=== PATIENT | female | born 1930 | race Asian ===

== ENCOUNTER → 2017-03-03 | Outpatient (CLI) | payer MEDICARE, OTHER ==
[2014-09-02 13:27] VITALS: BMI 36.1
[~2017-03-03] MED LIST: ACE325 PO; ACET500T68 PO; ACLI400A2 IH; ADV100/50 INH; ADV250/50 INH; ALB18R IH; ALBU2.5V36 IH; ALBU8.5H IH; ALBU8.5H12 IH; ALL300 GT; ALL300 PO; ALLO-2 PO; AML5 PO; AMLO-101 PO; AMLO-96 PO; ASP325 PO; ASPI81TA94 PO; ATEN-1 PO; ATEN-65 PO; ATENOLOL; AUG875 PO; AZI250 PO; AZIT-18 PO; Acetaminophen PO; Albuterol/Ipratropium NEB; BENZ100C26 PO; CA C1TAB6 PO; CELE-1 PO; CLO75 PO; CLOP75TA43 PO; CYC10 PO; CYCL-277 PO; DOCU-202 PO; DULO30CA6 PO; DUONEB INH; DYAZIDE; ESC10 PO; ESCI20TA38 PO; FERR-41 PO; FERR28TA2 PO; FLU60SYR30 IM ONLY; FLUT1DIS28 INH; FUR20 PO; FURO-45 PO; FURO-47 PO; FURO40SO5 PO; FURO40TA35 PO; GAB100 PO; GAB300 PO; GABA-488 PO; GABA-549 PO; GLIM1TAB25 PO; Guaifenesin PO; HYDR-318 PO; IPRA3AMP21 IH; IPRA3AMP37 IH; IPRA4AER IH; IRO150 PO; LEV500 PO; LEVO750T27 PO; LID5T TP; LIS20 PO; LISI-357 PO; LISI-362 PO; LISI-374 PO; LOR5 PO; Losartan Potassium PO; METH4TAB66 PO; METO-1 PO; METO25TA23 PO; MOM PO; MONT10TA PO; MU-V1TAB9 PO; MULT1TAB54 PO; OMEP-125 PO; OXYC-865 PO; OXYC-869 PO; OXYC1TAB54 PO; PAN40 PO; PANT40TA65 PO; PER PO; POLY17PO21 PO; POLY17PO25 PO; POTA20PA10 PO; POTA20TA85 PO; POTA20TA94 PO; PRAV40TA77 PO; PRAV40TA78 PO; PRED20TA6 PO; Pantoprazole Sod PO; Portable Oxygen; SERT-184 PO; SIM10 PO; SIMV-42 PO; SPIR25TA78 PO; SUCR1TAB51 PO; Sucralfate PO; TRA50 PO; TRAM-420 PO
[2017-03-03 17:21] LABS: PLATELET COUNT, AUTOMATED 207 K/uL (150-450)
--- NOTE | 2017-03-03 18:59 | RADIOLOGY IMAGING REPORT ---
FACILITY: [facility] - [place] PATIENT NAME: Yuly Truong : 1930 MR: [id number] V: [id number] EXAM DATE: ORDERING PHYSICIAN: ALEXANDER CASTANON TECHNOLOGIST: Location: [facility] - [place] Patient: Yuly Truong : 1930 Visit/Account:[id number] Date of Sevice: 03/03/2017 CHEST PA AND LAT INDICATION: PNEUMONIA COMPARISON: 02/10/2017 FINDINGS: Cardiac silhouette remains mildly enlarged. Scarring is noted within the right upper lobe. There is bibasilar atelectasis versus infiltrate more prominent on the right than left. Prominent interstitial lung markings are again noted There is no pneumothorax or pleural effusion. IMPRESSION: 1. Question possible right lower lobe infiltrate versus atelectasis. Probable atelectasis is noted at the left lung base. Report Dictated By: Trenton Lanza at 03/03/2017 6:47 PM Report E-Signed By: Trenton Lanza at 03/03/2017 6:56 PM WSN:[id number]
--- NOTE | 2017-03-03 19:01 | RADIOLOGY IMAGING REPORT ---
FACILITY: [facility] - [place] PATIENT NAME: Yuly Truong : 1930 MR: [id number] V: [id number] EXAM DATE: ORDERING PHYSICIAN: ALEXANDER CASTANON TECHNOLOGIST: [place] [facility] [place]: Yuly Truong : 1930 Visit/Account:[id number] Date of Sevice: 03/03/2017 TIBIA FIBULA RIGHT Indication: Pain Comparison: None available Findings: Two views right tibia and fibula show no acute fracture or dislocation. Cerclage wires noted around remote patellar fracture There is no focal soft tissue abnormality. No evidence of radiopaque foreign body. IMPRESSION: No acute osseous abnormality right tibia/fibula Report Dictated By: Trenton Lanza at 03/03/2017 6:56 PM Report E-Signed By: Trenton Lanza at 03/03/2017 6:56 PM WSN:[id number]
== END ==
LOC: LAB 16:33
PROVIDERS: ATTEND Nurse Practitioner Family
DX: I50.9 Heart failure, unspecified (principal); I10 Essential (primary) hypertension
CPT/HCPCS: 36415; 71046; 82040; 82247; 82310; 82374; 82435; 82565; 82947; 83880; 84075; 84132; 84155; 84295; 84450; 84460; 84520; 85025

== ENCOUNTER → 2017-03-27 | Outpatient (CLI) | payer MEDICARE, OTHER ==
[2014-09-02 13:27] VITALS: BMI 36.1
[2017-03-27 16:29] LABS: PLATELET COUNT, AUTOMATED 179 K/uL (150-450)
--- NOTE | 2017-03-27 18:01 | RADIOLOGY IMAGING REPORT ---
FACILITY: [facility] PATIENT NAME: Yuly Truong : 1930 MR: [id number] V: [id number] EXAM DATE: ORDERING PHYSICIAN: ALEXANDER CASTANON TECHNOLOGIST: Location: [facility] Patient: Yuly Truong : 1930 Visit/Account:[id number] Date of Sevice: 03/27/2017 EXAMINATION: PA and Lateral Chest 03/27/2017 4:22 PM HISTORY: pneumonia COMPARISON: 03/03/2017 FINDINGS: Cardiomediastinal contours: Stable heart size and configuration. 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 Atheros clerotic aorta. Lungs and pleura: Increased markings the lungs with similar pattern to previous. No acute superimpose d focal infiltrate evident. Bones/soft tissues: Old lateral right rib trauma. Degenerative or posttraumatic changes in the right shoulder. Stable thoracolumbar wedge compressions. IMPRESSION: Chronic features including increased markings in the lungs which are similar to priors an d consistent with fibrosis. No acute superimposed infiltrate evident. Report Dictated By: Ismael Hernandez MD at 03/27/2017 5:55 PM Report E-Signed By: Ismael Hernandez MD at 03/27/2017 5:57 PM WSN:[id number]
== END ==
LOC: LAB 16:07
PROVIDERS: ATTEND Nurse Practitioner Family
DX: I70.0 Atherosclerosis of aorta (principal); R91.8 Other nonspecific abnormal finding of lung field; D64.9 Anemia, unspecified; R19.7 Diarrhea, unspecified
CPT/HCPCS: 36415; 71046; 82040; 82247; 82310; 82374; 82435; 82565; 82947; 84075; 84132; 84155; 84295; 84450; 84460; 84520; 85025; 85651; 86140

== ENCOUNTER → 2017-08-07 | Outpatient (CLI) | payer MEDICARE, OTHER ==
[2014-09-02 13:27] VITALS: BMI 36.1
[~2017-08-07] MED LIST changes: +PRAZ1CAP26 PO
== END ==
LOC: LAB 14:48
PROVIDERS: ATTEND Internal Medicine Cardiovascular Disease
DX: I50.32 Chronic diastolic (congestive) heart failure (principal)
CPT/HCPCS: 36415; 83880

== ENCOUNTER → 2017-08-14 | Outpatient (CLI) | payer MEDICARE, OTHER ==
[2014-09-02 13:27] VITALS: BMI 36.1
[~2017-08-14] MED LIST changes: +RANI-366 PO
[2017-08-14 12:29] LABS: PLATELET COUNT, AUTOMATED 202 K/uL (150-450)
== END ==
LOC: LAB 11:57
PROVIDERS: ATTEND Nurse Practitioner Family
DX: R10.9 Unspecified abdominal pain (principal)
CPT/HCPCS: 36415; 81001; 82040; 82150; 82247; 82306; 82310; 82374; 82435; 82465; 82565; 82947; 83036; 83690; 83718; 83970; 84075; 84132; 84155; 84295; 84443; 84450; 84460; 84478; 84520; 85025

== ENCOUNTER → 2017-08-18 | Outpatient (CLI) | payer MEDICARE, OTHER ==
[2014-09-02 13:27] VITALS: BMI 36.1
[2017-08-18 15:29] LABS: PLATELET COUNT, AUTOMATED 179 K/uL (150-450)
== END ==
LOC: LAB 15:02
PROVIDERS: ATTEND Nurse Practitioner Family
DX: E83.52 Hypercalcemia (principal); D64.9 Anemia, unspecified
CPT/HCPCS: 36415; 82040; 82247; 82310; 82330; 82374; 82435; 82565; 82607; 82652; 82746; 82947; 83519; 84075; 84132; 84155; 84165; 84295; 84450; 84460; 84520; 85007; 85027

== ENCOUNTER → 2017-09-04 | Outpatient (CLI) | payer MEDICARE, OTHER ==
[2014-09-02 13:27] VITALS: BMI 36.1
[~2017-09-04] MED LIST changes: +IPRA3AMP10 IH; -IPRA3AMP21 IH; -SPIR25TA78 PO; +SPIR25TA80 PO
--- NOTE | 2017-09-04 16:52 | RADIOLOGY IMAGING REPORT ---
FACILITY: PATIENT NAME: Yuly Truong : 1930 MR: [id number] V: [id number] EXAM DATE: ORDERING PHYSICIAN: ALEXANDER CASTANON TECHNOLOGIST: Location: [facility] - [place] Patient: Yuly Truong : 1930 Visit/Account:[id number] Date of Sevice: 09/04/2017 ABDOMEN/PELVIS W/O CONTRAST Provided history: abdominal pain Additional pertinent history: none TECHNIQUE: Spiral scan was obtained from the lower chest through the symphysis without intravenous co ntrast. Source images were reformatted in the coronal and sagittal planes. Additional series performed today: none One of the following dose optimization techniques was utilized in the performance of this exam: Autom ated exposure control; adjustment of the mA and/or kV according to the patient's size; or use of an i terative reconstruction technique. Specific details can be referenced in the facility's radiology CT exam operational policy. COMPARISON STUDIES: CT 08/14/16 FINDINGS: Lower chest: Stable subpleural reticular densities. No acute infiltrate. Prosthetic aortic valve no dayron. Liver/biliary: Nodular surface and relative hypertrophy of the lateral segment left lobe is concernin g for potential cirrhosis. No focal lesion detected on this non-IV enhanced study. Gallbladder and bile ducts negative. Main portal vein is relatively small. Pancreas: Negative Spleen: Stable 13 mm round hypodensity of the medial posterior spleen, very likely benign cyst or hem angioma. Adrenal glands: Negative Kidneys / ureters / bladder / genitourinary / retroperitoneum: Negative Bowel / peritoneum / mesenteries: Moderate diverticulosis of the lower descending;. No acute diverti culitis. Vessels: Moderate calcified plaque abdominal aorta and iliacs. No aneurysm. Lymph nodes: negative Body wall: There are 3 defects in the anterior midline rectus fascia with herniation of properitoneal fat through age defect. The upper defect has a mouth measuring 10 mm with a hernia sac of nearly 4 cm craniocaudal. The middle defect measures 2 cm in diameter with a hernial directly beneath the umb ilicus measuring 3.4 cm. The lowermost defect has a mouth measuring 10 mm and hernia sac of fat jenna uring 2.5 cm. No inflammatory change. No bowel herniation. No change from prior. Bones: Stable moderate central compression deformity at T12. Stable moderate anterior compression de formity at L1. Stable minor anterior wedge deformity at L4. No interim fractures. No lytic or marine tic bone lesion. IMPRESSION: 1. Morphology of the liver is concerning for developing cirrhosis. Correlate with LFTs. No obvious focal lesion on this nonenhanced scan. Suggest baseline MRI without and with IV gadolinium. 2. No acute inflammatory change in the abdomen or pelvis. 3. 3 anterior abdominal and pelvic wall fat-containing hernias without inflammation. No bowel herni ation. 4. Stable compression deformities of the spine. No interim compression fractures. Report Dictated By: Fredi Azul MD at 09/04/2017 4:40 PM Report E-Signed By: Fredi Azul MD at 09/04/2017 4:49 PM WSN:[id number]
== END ==
LOC: CT 03:26
PROVIDERS: ATTEND Nurse Practitioner Family
DX: K76.0 Fatty (change of) liver, not elsewhere classified (principal); I25.10 Atherosclerotic heart disease of native coronary artery without angina pectoris; K43.9 Ventral hernia without obstruction or gangrene; M51.34 Other intervertebral disc degeneration, thoracic region; M51.36 Other intervertebral disc degeneration, lumbar region
CPT/HCPCS: 36415; 74176; 82565

== ENCOUNTER → 2017-09-11 | Outpatient (CLI) | payer MEDICARE, OTHER ==
[2014-09-02 13:27] VITALS: BMI 36.1
[~2017-09-11] MED LIST changes: +CYAN100017 PO; +GADOBENATE 529MG/1ML 15ML VIAL IVP ONE; +NS 0.9% 20 ML SDV 40 ML ONE
--- NOTE | 2017-09-11 14:48 | RADIOLOGY IMAGING REPORT ---
FACILITY: [facility] PATIENT NAME: Yuly Truong : 1930 MR: [id number] V: [id number] EXAM DATE: ORDERING PHYSICIAN: ALEXANDER CASTANON TECHNOLOGIST: Location: [facility] - [place] Patient: Yuly Truong : 1930 Visit/Account:[id number] Date of Sevice: 09/11/2017 ABDOMEN W W/O CONTRAST HISTORY: abdominal pain and abnormal CT of the liver TECHNIQUE: Multiplanar multisequence magnetic resonance imaging of the abdomen without and with intr avenous contrast. CONTRAST: 15 mL MultiHance IV contrast COMPARISON: CT dated September 04, 2017. FINDINGS: Visualized lung bases: Negative. Liver: Suggestion of mild lobulated contour of the liver. No additional morphologic changes suggest sonido of cirrhosis. No concerning hepatic lesions. Diffuse mild hepatic steatosis. Gallbladder: Small gallstone without evidence for acute cholecystitis. Bile ducts: Common bile duct is borderline prominent however within normal limits for the patient's a ge. There is no visualized obstructing mass or choledocholithiasis. Spleen: T2 hyperintense lesion within the spleen measuring up to 1.5 cm, with delayed enhancement, m ost compatible with a hemangioma. Spleen is normal in size. Adrenals: Negative. Pancreas: Negative. Kidneys/: Negative. Visualized GI: Negative. Vessels/spaces/nodes: Negative. Bones/soft tissues: Negative. IMPRESSION: 1. Mild nonspecific lobulated contour of the liver without additional morphologic changes suggestive of cirrhosis. No visualized concerning hepatic lesions. 2. Additional incidental/chronic findings, as above. Report Dictated By: Kurt Gatica MD at 09/11/2017 2:36 PM Report E-Signed By: Kurt Gatica MD at 09/11/2017 2:44 PM WSN:[email or web address]
== END ==
LOC: MRI 02:50
PROVIDERS: ATTEND Nurse Practitioner Family
DX: K80.20 Calculus of gallbladder without cholecystitis without obstruction (principal); R93.2 Abnormal findings on diagnostic imaging of liver and biliary tract
CPT/HCPCS: 74183; A9577; J7050

== ENCOUNTER → 2017-09-14 | Outpatient (CLI) | payer MEDICARE, OTHER ==
[2014-09-02 13:27] VITALS: BMI 36.1
[~2017-09-14] MED LIST changes: -GADOBENATE 529MG/1ML 15ML VIAL IVP ONE; -NS 0.9% 20 ML SDV 40 ML ONE
[2017-09-14 15:58] LABS: PLATELET COUNT, AUTOMATED 191 K/uL (150-450)
== END ==
LOC: LAB 15:26
PROVIDERS: ATTEND Nurse Practitioner Family
DX: E83.52 Hypercalcemia (principal); D64.9 Anemia, unspecified; R94.5 Abnormal results of liver function studies
CPT/HCPCS: 36415; 82040; 82247; 82310; 82374; 82435; 82565; 82728; 82947; 83519; 83540; 83550; 84075; 84132; 84155; 84295; 84450; 84460; 84520; 85025; 86706; 86707; 87340; 87350; 87522

== ENCOUNTER → 2017-10-05 | Outpatient (CLI) | payer MEDICARE, OTHER ==
[2014-09-02 13:27] VITALS: BMI 36.1
--- NOTE | 2017-10-05 16:33 | RADIOLOGY IMAGING REPORT ---
FACILITY: [facility] - [place] PATIENT NAME: Yuly Truong : 1930 MR: [id number] V: [id number] EXAM DATE: ORDERING PHYSICIAN: MARISSA RAMOS TECHNOLOGIST: Location: [facility] - [place] Patient: Yuly Truong : 1930 Visit/Account:[id number] Date of Sevice: 10/05/2017 Exam type: BONE SURVEY COMPLETE History: Abnormal labs Comparison: None. Findings: There is diffuse demineralization of the visualized bones. A lateral view from the body of C2 throug h the mid thoracic spine demonstrates multiple thoracic compression fractures. A rotated lateral view of the skull reveals no gross evidence of lytic or blastic lesion. An AP view the pelvis demonstrates moderate spondylotic changes lower lumbar spine. No aggressive ap pearing bone lesions are seen. AP views of the femurs including the hips in the knees demonstrate no aggressive appearing lesions. There are postsurgical changes of the right patella. AP views of both humeri demonstrate moderate degenerative changes at the shoulder joints. No aggress sonido appearing lesions are seen IMPRESSION: 1. No aggressive appearing bone lesions are identified Report Dictated By: Florencia Escobedo MD at 10/05/2017 4:24 PM Report E-Signed By: Florencia Escobedo MD at 10/05/2017 4:28 PM WSN:[id number]
== END ==
LOC: RAD 14:40
PROVIDERS: ATTEND Internal Medicine Hematology
DX: R79.9 Abnormal finding of blood chemistry, unspecified (principal)
CPT/HCPCS: 77075

== ENCOUNTER → 2017-10-07 | Outpatient (CLI) | payer MEDICARE, OTHER ==
[2014-09-02 13:27] VITALS: BMI 36.1
[~2017-10-07] MED LIST changes: +REGADENOSON 0.4 MG/5 ML SYR ONE
--- NOTE | 2017-10-07 16:39 | RADIOLOGY IMAGING REPORT ---
FACILITY: [facility] - [place] PATIENT NAME: Yuly Truong : 1930 MR: [id number] V: [id number] EXAM DATE: ORDERING PHYSICIAN: KIRA PIKE TECHNOLOGIST: Location: [facility] - [place] Patient: Yuly Truong : 1930 Visit/Account:[id number] Date of Sevice: 10/07/2017 EXAMINATION: Single isotope SPECT imaging with regadenoson infusion and gated SPECT imaging. DATE OF EXAMINATION: 10/07/2017. DATE OF INTERPRETATION: 10/07/2017. REQUESTING PHYSICIAN: KIRA PIKE. INDICATION: The patient is a 87-year-old female evaluated for CAD. PROCEDURE: After informed consent the patient received an intravenous injection of 12.0 mCi of Tc-99 m sestamibi followed at an appropriate time interval by rest imaging. The patient then subsequently received an intravenous infusion of 0.4 mg of regadenoson per protocol without complication. Resting heart rate was 82 bpm with a peak heart rate of 90 bpm. Blood pressure at rest was 159 / 66 and fol lowing infusion was 201 / 67. Baseline EKG demonstrates normal sinus rhythm, no ST or T-wave abnorma lities. There were no EKG changes of ischemia following infusion. Symptoms were nonspecific. The p atient then received an intravenous injection of 29.3 mCi of Tc-99m sestamibi followed by stress imag ing. RAW DATA: Examination of the summed raw data revealed a good quality study. MYOCARDIAL PERFUSION: The tomographic images demonstrate small, mild anteroapical defect that appear s fixed with no evidence of reversible ischemia. GATED IMAGES: The gated images demonstrate hyperdynamic wall motion, ejection fraction 84%. IMPRESSION: 1. Good quality study 2. Abnormal myocardial perfusion scan. Small anteroapical defect may suggest prior LAD or diagonal i nfarct but no reversible ischemia seen. 3. Hyperdynamic LV systolic function; LVEF 84%. 4. Based on the results of this exam, the patient appears to be at low risk for future cardiovascular events but remains intermediate risk due to history of CAD. Report Dictated By: Johny Sosa at 10/07/2017 4:32 PM Report E-Signed By: Johny Sosa at 10/07/2017 4:36 PM WSN:[id number]
--- NOTE | 2017-10-07 21:43 | RT STRESS TEST REPORT ---
FACILITY: [facility] - [place] PATIENT NAME: PK VILLAFANA : [id number] MR: [id number] V: [id number] EXAM DATE: ORDERING PHYSICIAN: KIRA PIKE TECHNOLOGIST: [place] Acquisition Time: 2017-10-07 14:37:16 Total Exercise Time: 00:01:00 Test Indications: Screening for CAD Medications: See nuclear med sheet Protocol: LEXISCAN Max HR: 090 BPM 66% of Pred: 135 BPM Max BP: 201/067 mmHG Max Work Load: 1.0 METS Confirmed by RIDDHI FIGUEROA ([id number]) on 10/07/2017 9:42:38 PM Referred By: RIDDHI FIGUEROA Overread By: RIDDHI FIGUEROA
== END ==
LOC: NUC 02:23
PROVIDERS: ATTEND Internal Medicine Cardiovascular Disease
DX: R94.39 Abnormal result of other cardiovascular function study (principal)
CPT/HCPCS: 36415; 78452; 93017; A9500; J2785; 82040; 82247; 82310; 82374; 82435; 82465; 82565; 82947; 83718; 84075; 84132; 84155; 84295; 84450; 84460; 84478; 84520

== ENCOUNTER 2017-10-08 15:54 | Outpatient (RCR) | payer MEDICARE, OTHER ==
[2014-09-02 13:27] VITALS: Wt 85.0 kg
[2017-09-24 15:56] VITALS: BP 140/67
[2017-09-24 16:44] LABS: PLATELET COUNT, AUTOMATED 183 K/uL (150-450)
--- NOTE | 2017-09-24 18:58 | ONCOLOGY CONSULTATION ---
EVENT DATE: September 24, 2017 REFERRING PHYSICIAN Stephany Blakely APRN REASON FOR CONSULTATION Evaluation and management of abnormal serum protein electrophoresis. HEMATOLOGY HISTORY Patient is an 87-year-old female who is followed by Stephany Blakely and patient was found to have an abnormal serum protein with immunofixation which showed a faint band in IgG lambda. Patient also showed a white count of 6.4, hemoglobin 11.6, hematocrit 33.7, platelets 191,000. Serum creatinine was mildly elevated at 1.4, blood sugar 120. Erythropoietin level was mildly elevated at 33. Quantitative immunoglobulins were normal, IgG was 1060, IgA was 157 and IgM was 40. Patient was referred for evaluation of the abnormal serum protein electrophoresis. PAST MEDICAL HISTORY 1. Dementia. 2. Congestive heart failure. 3. Hyperlipidemia. 4. Heart attack in 2012. 5. COPD. 6. History of pneumonia. 7. Type 2 diabetes mellitus. PAST SURGICAL HISTORY 1. Appendectomy. 2. Hysterectomy done in 2012. SOCIAL HISTORY The patient is a with one daughter. 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 FAMILY HISTORY Noncontributory. CURRENT MEDICATIONS 1. Prazosin 1 mg at bedtime. 2. Tramadol 50 mg three times daily p.r.n. for pain. 3. Vitamin B12 one tablet daily 1000 mcg. 4. Zantac 150 mg daily. 5. Albuterol 90 mcg per activation two puff inhalation four times daily as needed. 6. Duloxetine 30 mg one capsule daily. 7. Metoprolol 25 mg daily. 8. Amlodipine 5 mg daliy. 9. Allopurinol 300 mg daily. 10. Gabapentin 100 mg three times daily. 11. Tylenol p.r.n. three times daily 1000 mg. 12. Lasix 40 mg twice daily. 13. Pravastatin 40 mg daily. 14. Ipratropium/albuterol by nebulization four to six hours p.r.n. 15. Aspirin 81 mg daily. 16. Advair 250/50 twice daily. 17. Multivitamin daily. 18. Portable oxygen. ALLERGIES No known drug allergies. REVIEW OF SYSTEMS CONSTITUTIONAL: No appetite or weight change. No fever, chills or sweating. No recent infection. HEENT: Ears: No tinnitus or hearing problem. Nose: No nasal discharge. She has occasional epistaxis. Throat: No sore throat or mouth ulcers. Eyes: No diplopia or visual changes. RESPIRATORY: She has cough, shortness of breath and wheezing. CARDIOVASCULAR: No chest pain, orthopnea, or paroxysmal nocturnal dyspnea (PND) . No edema. No palpitations. GASTROINTESTINAL: She has nausea and constipation. GENITOURINARY: No hematuria or dysuria. MUSCULOSKELETAL: She has pain in the right shoulder which is getting better with local steroid injections. NEUROLOGICAL: She has tingling and numbness in the hands. HEMATOLOGIC/LYMPHATIC: She bruises easily. She is weak, tired and fatigued. SKIN: No skin rash or lumps. PSYCHIATRIC: No anxiety or depression. PHYSICAL EXAMINATION GENERAL: Looks stable. Well-developed, well-nourished, and in no acute distress. VITAL SIGNS: Blood pressure 140/67, pulse 78 per minute, respirations 16 per minute, temperature 97.9, pulse ox 95% on 3L oxygen. HEENT: Head: Atraumatic. No sinus tenderness to palpation. Eyes: No icterus or conjunctivitis. Mouth and Throat: No oral thrush or mucositis. NECK: Supple. No cervical or supraclavicular lymphadenopathy. LUNGS: Clear to auscultation and percussion bilaterally. HEART: Regular rate and rhythm. No gallops, murmurs, clicks or rubs. ABDOMEN: Soft and lax. No tenderness. No hepatosplenomegaly. No masses. EXTREMITIES: No cyanosis, clubbing or edema. LYMPHATICS: No peripheral lymphadenopathy. NEUROLOGICAL: The patient has dementia. PSYCHIATRIC: Mood and affect appear normal. SKIN: No skin rash, bruise or purpuric eruption. ASSESSMENT 1. Abnormal serum protein immunoelectrophoresis with faint band in the IgG lambda. I am planning to run a full workup for multiple myeloma and I am planning to get a CBC, chem panel, LDH, uric acid, beta-2 microglobulin, free light chain assay and repeat the immunoelectrophoresis. I am planning also to get skeletal bone survey to see if there are any lytic bone lesions. Further evaluation and management will depend on the results of those tests. 2. Dementia. 3. Congestive heart failure. 4. Chronic obstructive pulmonary disease. 5. Type 2 diabetes. PLAN 1. CBC, chem panel. 2. LDH, uric acid. 3. Serum protein electrophoresis. 4. Free light chain assay. 5. Beta-2 microglobulin. 6. Skeletal bone survey. 7. Consider bone marrow aspiration biopsy. 8. Patient to return in one week for further evaluation and management. 9. Patient to contact us for any new concerns or complaints. MTDD
[~2017-10-08 15:54] MED LIST changes: -REGADENOSON 0.4 MG/5 ML SYR ONE
[2017-10-08 16:01] VITALS: BP 165/72
--- NOTE | 2017-10-08 19:08 | ONCOLOGY FOLLOW UP NOTE ---
EVENT DATE: October 08, 2017 DIAGNOSES 1. Abnormal serum protein immunoelectrophoresis. 2. Dementia. 3. Congestive heart failure. 4. Chronic obstructive pulmonary disease. 5. Type 2 diabetes. CHIEF COMPLAINT Patient is here today for followup of her evaluation of her abnormal serum protein immunoelectrophoresis. HEMATOLOGY HISTORY Patient is an 87-year-old female who is followed by Stephany Blakely and patient was found to have an abnormal serum protein with immunofixation which showed a faint band in IgG lambda. Patient also showed a white count of 6.4, hemoglobin 11.6, hematocrit 33.7, platelets 191,000. Serum creatinine was mildly elevated at 1.4, blood sugar 120. Erythropoietin level was mildly elevated at 33. Quantitative immunoglobulins were normal, IgG was 1060, IgA was 157 and IgM was 40. Patient was referred for evaluation of the abnormal serum protein electrophoresis. Repeat CBC showed normal white count and platelets, mild anemia at 11.2 with MCV 100.1. Chem panel totally normal except AST 38, creatinine 1.3, blood sugar 137, BUN 32. Steinauer free light chain is high at 7.41 and lambda free light chain is high at 2.66, and free kappa to lambda ratio is high at 2.79. Skeletal bone survey is normal with no lytic bone lesions. Serum protein immunoelectrophoresis shows a normal pattern with no monoclonal protein. HISTORY OF PRESENT ILLNESS Patient is here today for followup of her abnormal serum protein immunoelectrophoresis. She is complaining of sweating sometimes. She has also a bloody nose sometimes. She has cough with shortness of breath and she is on home oxygen. She has also constipation. She has pain in her knees, but she has also cramps everywhere. She bruises easily. She is weak, tired and fatigued. PAST MEDICAL HISTORY 1. Dementia. 2. Congestive heart failure. 3. Hyperlipidemia. 4. Heart attack in 2012. 5. COPD. 6. History of pneumonia. 7. Type 2 diabetes mellitus. PAST SURGICAL HISTORY 1. Appendectomy. 2. Hysterectomy done in 2012. SOCIAL HISTORY The patient is a with one daughter. 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 FAMILY HISTORY Noncontributory. CURRENT MEDICATIONS 1. Prazosin 1 mg at bedtime. 2. Tramadol 50 mg three times daily p.r.n. for pain. 3. Vitamin B12 one tablet daily 1000 mcg. 4. Zantac 150 mg daily. 5. Albuterol 90 mcg per activation two puff inhalation four times daily as needed. 6. Duloxetine 30 mg one capsule daily. 7. Metoprolol 25 mg daily. 8. Amlodipine 5 mg daliy. 9. Allopurinol 300 mg daily. 10. Gabapentin 100 mg three times daily. 11. Tylenol p.r.n. three times daily 1000 mg. 12. Lasix 40 mg twice daily. 13. Pravastatin 40 mg daily. 14. Ipratropium/albuterol by nebulization four to six hours p.r.n. 15. Aspirin 81 mg daily. 16. Advair 250/50 twice daily. 17. Multivitamin daily. 18. Portable oxygen. ALLERGIES No known drug allergies. REVIEW OF SYSTEMS CONSTITUTIONAL: No appetite or weight change. No fever, chills. She has sweating. No recent infection. HEENT: Ears: No tinnitus or hearing problem. Nose: No nasal discharge. She has epistaxis occasionally. Throat: No sore throat or mouth ulcers. Eyes: No diplopia or visual changes. RESPIRATORY: She has dry cough and shortness of breath. CARDIOVASCULAR: No chest pain, orthopnea, or paroxysmal nocturnal dyspnea (PND) . No edema. No palpitations. GASTROINTESTINAL: She has constipation. GENITOURINARY: No hematuria or dysuria. MUSCULOSKELETAL: She has pain in the knees and cramps. NEUROLOGICAL: No tingling or numbness in the hands or feet. No headaches or convulsions. HEMATOLOGIC/LYMPHATIC: She bruises easily. She is weak, tired and fatigued. SKIN: No skin rash or lumps. PSYCHIATRIC: No anxiety or depression. PHYSICAL EXAMINATION GENERAL: Looks stable. Well-developed, well-nourished, and in no acute distress. VITAL SIGNS: Blood pressure 165/72, pulse 96 per minute, respirations 16 per minute, temperature 97.6, pulse ox 94% on 4L oxygen. HEENT: Head: Atraumatic. No sinus tenderness to palpation. Eyes: No icterus or conjunctivitis. Mouth and Throat: No oral thrush or mucositis. NECK: Supple. No cervical or supraclavicular lymphadenopathy. LUNGS: Clear to auscultation and percussion bilaterally. HEART: Regular rate and rhythm. No gallops, murmurs, clicks or rubs. ABDOMEN: Soft and lax. No tenderness. No hepatosplenomegaly. No masses. EXTREMITIES: No cyanosis, clubbing or edema. LYMPHATICS: No peripheral lymphadenopathy. NEUROLOGICAL: The patient has dementia. PSYCHIATRIC: Mood and affect appear normal. SKIN: No skin rash, bruise or purpuric eruption. DIAGNOSTIC DATA CBC shows white count 5.5, hemoglobin 11.2, hematocrit 33.3, platelets 183,000, MCV 100.1. Chem panel totally normal except AST 38, creatinine 1.3, blood sugar 137, BUN 32. Steinauer free light chain is high at 7.41, lambda free light chain is high at 2.66, free kappa to lambda ration is high at 2.79. Skeletal bone survey showed no lytic bone lesions. Serum protein immunoelectrophoresis did not show any monoclonal protein. ASSESSMENT 1. Abnormal serum protein immunoelectrophoresis with faint band in the IgG lambda. Repeat serum protein immunoelectrophoresis did not show any monoclonal protein, but there was increase in both kappa free light chain and lambda free light chain, and increase in the free kappa to lambda ratio. I am planning to repeat her serum protein immunoelectrophoresis in six months from now. Skeletal bone survey was negative for lytic bone lesions. All of these results are again as a diagnosis of multiple myeloma. 2. Dementia. 3. Congestive heart failure. 4. Chronic obstructive pulmonary disease. 5. Type 2 diabetes. PLAN 1. Continue followup. 2. Patient to return in six months with CBC, chem panel, LDH, uric acid and myeloma profile. 3. Patient to contact us for any new concern or complaints. [place]
[2017-10-14] MEDS ORDERED: PRAV40TA78 PO (16:25)
[2017-10-14] MEDS ORDERED: ALLO-2 PO (16:25)
[2017-10-14] MEDS ORDERED: AMLO-96 PO (16:25)
[2017-10-14] MEDS ORDERED: METO25TA23 PO (16:25)
[2017-10-16] MEDS ORDERED: DULO60CA56 PO (15:51)
[2017-10-16] MEDS ORDERED: PRAZ2CAP26 PO (15:51)
[2017-10-16] MEDS ORDERED: [UNRECOGNIZED DRUG - OTHER] (15:51)
[2017-10-20] MEDS ORDERED: FURO40TA35 PO (14:59)
== END 2017-10-23 11:06 | disposition home or self-care (01) ==
LOC: ONC 15:54
PROVIDERS: ATTEND Internal Medicine Hematology
DX: R77.8 Other specified abnormalities of plasma proteins (principal); I50.9 Heart failure, unspecified; E11.9 Type 2 diabetes mellitus without complications; J44.9 Chronic obstructive pulmonary disease, unspecified; F03.90 Unspecified dementia, unspecified severity, without behavioral disturbance, psychotic disturbance, mood disturbance, and anxiety; I25.2 Old myocardial infarction; E78.5 Hyperlipidemia, unspecified; Z87.891 Personal history of nicotine dependence; Z90.710 Acquired absence of both cervix and uterus
CPT/HCPCS: 82232; 83615; 83883; 84550; 85025; 86334; G0463; 82040; 82247; 82310; 82374; 82435; 82565; 82947; 84075; 84132; 84155; 84295; 84450; 84460; 84520; 99203; 99212

== ENCOUNTER → 2017-10-19 | Outpatient (CLI) | payer MEDICARE, OTHER ==
[2014-09-02 13:27] VITALS: BMI 36.1
[~2017-10-19] MED LIST changes: +DULO60CA56 PO; +PRAZ2CAP26 PO; +[UNRECOGNIZED DRUG - OTHER]
--- NOTE | 2017-10-19 15:56 | RADIOLOGY IMAGING REPORT ---
[place] [facility] [place]: PK VILLAFANA : [id number] MR: [id number] V: [id number] EXAM DATE: [id number] ORDERING PHYSICIAN: ALEXANDER CASTANON TECHNOLOGIST: Sabrina Nicole PROCEDURE:BILATERAL DIGITAL SCREENING MAMMOGRAM WITH CAD ASSISTED INTERPRETATION & 3D TOMOSYNTHESIS COMPARISON:Prior mammogram 09/16/2013 INDICATIONS:screening FINDINGS: The breast tissue is heterogeneously dense. Retroareolar asymmetries are stable from prior examination. There is no dominant mass, suspicious cluster of microcalcifications or persistent areas of architectural distortion. DIAGNOSTIC CATEGORY 1--NEGATIVE. RECOMMENDATIONS: ROUTINE MAMMOGRAM AND CLINICAL EVALUATION IN 1 YR. IMPRESSION: BIRADS 1: Negative. Dictated by: Adma Multani M.D. on 10/19/2017 at 15:11 Transcribed by: MARIEL on 10/19/2017 at 15:20 Approved by: Adam Multani M.D. on 10/19/2017 at 15:55 [facility]
== END ==
LOC: MAMO 02:31
PROVIDERS: ATTEND Nurse Practitioner Family
DX: Z12.31 Encounter for screening mammogram for malignant neoplasm of breast (principal)
CPT/HCPCS: 77063; 77067

== ENCOUNTER → 2017-11-26 | Outpatient (CLI) | payer MEDICARE, OTHER ==
[2014-09-02 13:27] VITALS: BMI 36.1
[~2017-11-26] MED LIST changes: +AMLO-111 PO; -AMLO-96 PO; +FLU180SY11 IM
[2017-11-26 13:09] LABS: PLATELET COUNT, AUTOMATED 207 K/uL (150-450)
== END ==
LOC: LAB 12:29
PROVIDERS: ATTEND Nurse Practitioner Family
DX: D51.9 Vitamin B12 deficiency anemia, unspecified (principal); I10 Essential (primary) hypertension
CPT/HCPCS: 36415; 82040; 82247; 82310; 82374; 82435; 82565; 82607; 82746; 82947; 84075; 84132; 84155; 84295; 84443; 84450; 84460; 84520; 85025

== ENCOUNTER 2018-01-05 17:34 | Inpatient (IN) | payer MEDICARE, OTHER ==
[~2018-01-05] VITALS: Ht 152.4 cm; Wt 80.7 kg
[~2018-01-05 17:34] MED LIST changes: +BUPR-472 PO; +GABA-547 PO; +POLY17PO11 PO; -POLY17PO21 PO
--- NOTE | 2018-01-05 17:49 | ER Report ---
History and Physical Time Seen By MD: 17:49 Hx. of Stated Complaint: FALLING, RESP DIFF HPI/ROS CHIEF COMPLAINT: Falls, back pain, cough HISTORY OF PRESENT ILLNESS: 87-year-old female patient presents to emergency room with complaint falls, back pain and cough. Patient states that she is not been feeling well for the past few days. She states she's been having falls everyday. Family members state that they have been forcing her to use her walker, which she doesn't like. They state that even without that she is having falls frequently. He states that she has had problems with continence. They state that the room that she is in does have a urine smell. They deny any fevers, chills. They're concerned that she does have a pneumonia. She has been coughing up phlegm. They state they've been giving her her breathing treatments all without any help. REVIEW OF SYSTEMS: Respiratory: As noted above Cardiovascular: No chest pain, no palpitations. Gastrointestinal: No vomiting, no abdominal pain. Musculoskeletal: As noted above Allergies: Coded Allergies: No Known Drug Allergies (Unverified , 01/05/18) Home Meds Active Scripts Bupropion Hcl (WELLBUTRIN XL) 150 Mg Tab.er.24h, 1 TAB PO BID, #60 TAB 0 Refills 1 tab daily x 1 week then increase to 1 tab twice daily Prov:ALEXANDER CASTANON APRN 11/30/17 [Transport Wheel[employer]] No Conflict Check Prov:ALEXANDER CASTANON APRN 10/16/17 Metoprolol Succinate (METOPROLOL SUCCINATE) 25 Mg Tab.er.24h, 1 TAB PO BID, #180 TAB Prov:ALEXANDER CASTANON APRN 10/14/17 Amlodipine Besylate (AMLODIPINE BESYLATE) 5 Mg Tablet, 1 TAB PO QDAY, #90 TAB 3 Refills Prov:ALEXANDER CASTANON APRN 10/14/17 Allopurinol (Allopurinol) 300 Mg Tablet, 1 TAB PO QDAY, #90 TAB 3 Refills Prov:ALEXANDER CASTANON APRN 10/14/17 Pravastatin Sodium (PRAVASTATIN SODIUM) 40 Mg Tablet, 1 TAB PO QDAY, #90 TAB 3 Refills Prov:ALEXANDER CASTANON APRN-C 10/14/17 Tramadol Hcl (TRAMADOL HCL) 50 Mg Tablet, 1 TAB PO TID PRN for PAIN, #30 TAB 0 Refills Prov:ALEXANDER CASTANON APRN-C 09/14/17 Albuterol Sulfate 90 Mcg/Act (PROAIR HFA 90 MCG/ACT) 8.5 Gm Hfa.aer.ad, 2 PUFF IH QID PRN for WHEEZING, #1 INHALER 5 Refills Prov:ALEXANDER CASTANON APRN-Lissa 08/14/17 [Portable Oxygen] No Conflict Check Prov:ALEXANDER CASTANON APRN-C 10/30/15 Fluticasone/Salmeterol (ADVAIR 250-50 DISKUS) 1 Each Inh, 1 EACH INH BIDR, #1 D ISK Prov:OLIVERIO VALDERRAMA MD 04/12/14 Reported Medications Furosemide (LASIX) 40 Mg Tablet, 1 TAB PO QDAY, TAB 01/05/18 Gabapentin (GABAPENTIN) 100 Mg Capsule, 200 MG PO TID, CAPSULE 12/29/17 Cyanocobalamin (Vitamin B-12) (B-12) 1,000 Mcg Tablet, 1 TAB PO DAILY 09/14/17 Ranitidine Hcl (ZANTAC) 150 Mg Tablet, 150 MG PO DAILY, TAB 08/14/17 Acetaminophen (TYLENOL EXTRA STRENGTH) 500 Mg Tablet, 2 TAB PO TID, TAB 03/03/17 Ipratropium/Albuterol Sulfate (IPRAT-ALBUT 0.5-3(2.5) MG/3 ML) 3 Ml Ampul.neb, 3 ML IH Q4-6H PRN for SHORTNESS OF BREATH 05/15/16 Aspirin (ASPIRIN) 81 Mg Tab.chew, 81 MG PO QDAY, TAB.CHEW 05/15/16 Multivitamin (MULTI-VITAMIN DAILY) 1 Each Tablet, 1 EACH PO QDAY 03/08/14 Discontinued Scripts Furosemide (LASIX) 40 Mg Tablet, 1-2 TAB PO BID, #90 TAB 3 Refills Take 2 tabs morning and 1 tab afternoon Prov:ALEXANDER CASTANON APRN-C 10/20/17 Duloxetine HCl (Duloxetine HCl) 30 Mg Capsule.dr, 1 CAP PO DAILY, #10 TAB 0 Refills 1 tab daily x 1 week then one tab every other day x 1 week then stop Prov:ALEXANDER CASTANON JAVED MAJANOP-Lissa 11/30/17 Prazosin Hcl (PRAZOSIN HCL) 2 Mg Capsule, 1-2 CAP PO QHS, #60 CAPSULE 0 Refills 1 tab daily at bedtime. If no improvement in sleep and nightmares after 2 weeks may increase to 2 tabs at bedtime. Prov:ALEXANDER CASTANON JAVED BEE-C 10/16/17 Gabapentin (NEURONTIN) 100 Mg Capsule, 1 TAB PO TID, #270 CAPSULE 1 Refill Prov:ALEXANDER CASTANON JAVED BEE-C 07/03/17 Past Medical/Surgical History Patient has a past medical history of dementia, NV, hypertension, hyp erlipidemia, COPD, emphysema, congestive heart failure, GI bleed, peptic ulcer disease, shoulder dislocation, left wrist fracture, back fracture, back pain, type 2 diabetes. Patient has a surgical history of coronary stent, pacemaker, appendectomy, hysterectomy, knee surgery, shoulder surgery, cataract removal, thymus repair. Reviewed Nurses Notes: Yes Hx Smoking: No Smoking Status: Former Smoker Exposure to Second Hand Smoke?: Yes Hx Substance Use Disorder: No Hx Alcohol Use: No Constitutional Vital Sign - Last 24 Hours 01/05/18 01/05/18 01/05/18 01/05/18 17:41 17:44 17:44 18:00 Temp 98.5 Pulse 74 Resp 18 B/P (MAP) 110/56 (74) 110/56 121/57 (78) Pulse Ox 96 O2 Delivery Nasal Cannula O2 Flow Rate 3.0 01/05/18 01/05/18 01/05/18 01/05/18 18:04 18:13 18:13 18:23 Pulse 73 73 75 Resp 15 18 18 Pulse Ox 97 96 O2 Delivery Nasal Cannula O2 Flow Rate 3.0 01/05/18 01/05/18 18:30 18:34 Pulse 75 Resp 22 B/P (MAP) 137/62 (87) Pulse Ox 96 Physical Exam General Appearance: The patient is alert, has no immediate need for airway protection and no current signs of toxicity. Respiratory: Chest is non tender, lungs are wheezy to auscultation. Cardiac: regular rate and rhythm Gastrointestinal: Abdomen is soft and non tender, no masses, bowel sounds normal. Musculoskeletal: Neck: Neck is supple and non tender. Back: Patient does have some tenderness to the lumbar spine in the L1 region. Extremities have full range of motion and are non tender. Skin: No rashes or lesions. DIFFERENTIAL DIAGNOSIS: After history and physical exam differential diagnosis was considered for shortness of breath including but not limited to pulmonary infectious process, COPD, asthma, pulmonary embolus and congestive heart failure. Medical Decision Making Data Points Result Diagram: 01/05/18 [id number] Laboratory Hematology Test 01/05/18 17:51 01/05/18 19:34 Red Blood Count 3.27 M/uL (4.17-5.56) Mean Corpuscular Volume 101.6 fL (80.0-96.0) Mean Corpuscular Hemoglobin 33.6 pg (26.0-33.0) Mean Corpuscular Hemoglobin Concent 33.0 g/dL (32.0-36.0) Red Cell Distribution Width 16.6 % (11.5-14.5) Mean Platelet Volume 8.2 fL (7.2-11.1) Neutrophils (%) (Auto) 59.7 % (39.4-72.5) Lymphocytes (%) (Auto) 27.9 % (17.6-49.6) Monocytes (%) (Auto) 7.7 % (4.1-12.4) Eosinophils (%) (Auto) 4.0 % (0.4-6.7) Basophils (%) (Auto) 0.7 % (0.3-1.4) Nucleated RBC Relative Count (auto) 0.1 /100WBC Neutrophils # (Auto) 5.1 K/uL (2.0-7.4) Lymphocytes # (Auto) 2.4 K/uL (1.3-3.6) Monocytes # (Auto) 0.7 K/uL (0.3-1.0) Eosinophils # (Auto) 0.3 K/uL (0.0-0.5) Basophils # (Auto) 0.1 K/uL (0.0-0.1) Nucleated RBC Absolute Count (auto) 0.01 K/uL Sodium Level 139 mmol/L (137-145) Potassium Level 4.5 mmol/L (3.5-5.0) Chloride Level 103 mmol/L (98-107) Carbon Dioxide Level 25 mmol/L (22-31) Blood Urea Nitrogen 59 mg/dl (7-18) Creatinine 2.50 mg/dl (0.52-1.04) Glomerular Filtration Rate Calc 18.3 Random Glucose 106 mg/dl (75-110) Calcium Level 9.9 mg/dl (8.4-10.2) Total Bilirubin 0.4 mg/dl (0.2-1.3) Aspartate Amino Transf (AST/SGOT) 34 U/L (0-35) Alanine Aminotransferase (ALT/SGPT) 28 U/L (0-56) Alkaline Phosphatase 75 U/L (0-126) Troponin I 0.026 ng/ml B-Type Natriuretic Peptide 513 pg/ml (0-100) Total Protein 7.2 g/dl (6.3-8.2) Albumin 4.0 g/dl (3.5-5.0) Human Chorionic Gonadotropin, Qual Negative (NEGATIVE) Urine Color Yellow Urine Clarity Clear Urine pH 5.0 pH (4.8-9.5) Urine Specific [place] 1.015 Urine Protein Negative mg/dL (NEGATIVE) Urine Glucose (UA) Negative mg/dL (NEGATIVE) Urine Ketones Negative mg/dL (NEGATIVE) Urine Blood Negative (NEGATIVE) Urine Nitrite Negative (NEGATIVE) Urine Bilirubin Negative (NEGATIVE) Urine Urobilinogen Negative mg/dL (0.2-1.9) Urine Leukocyte Esterase Negative (NEGATIVE) Urine RBC None /HPF (0-2/HPF) Urine WBC <1 /HPF (0-5/HPF) Urine Squamous Epithelial Cells None /LPF (NONE-FEW) Urine Bacteria Negative /HPF (NONE-FEW) Urine Hyaline Casts Many /LPF (NONE-FEW) Urine Mucus None /HPF (NONE-FEW) Chemistry Test 01/05/18 17:51 01/05/18 19:34 White Blood Count 8.6 k/uL (4.5-11.0) Red Blood Count 3.27 M/uL (4.17-5.56) Hemoglobin 11.0 g/dL (12.0-16.0) Hematocrit 33.2 % (34.0-47.0) Mean Corpuscular Volume 101.6 fL (80.0-96.0) Mean Corpuscular Hemoglobin 33.6 pg (26.0-33.0) Mean Corpuscular Hemoglobin Concent 33.0 g/dL (32.0-36.0) Red Cell Distribution Width 16.6 % (11.5-14.5) Platelet Count 217 K/uL (150-450) Mean Platelet Volume 8.2 fL (7.2-11.1) Neutrophils (%) (Auto) 59.7 % (39.4-72.5) Lymphocytes (%) (Auto) 27.9 % (17.6-49.6) Monocytes (%) (Auto) 7.7 % (4.1-12.4) Eosinophils (%) (Auto) 4.0 % (0.4-6.7) Basophils (%) (Auto) 0.7 % (0.3-1.4) Nucleated RBC Relative Count (auto) 0.1 /100WBC Neutrophils # (Auto) 5.1 K/uL (2.0-7.4) Lymphocytes # (Auto) 2.4 K/uL (1.3-3.6) Monocytes # (Auto) 0.7 K/uL (0.3-1.0) Eosinophils # (Auto) 0.3 K/uL (0.0-0.5) Basophils # (Auto) 0.1 K/uL (0.0-0.1) Nucleated RBC Absolute Count (auto) 0.01 K/uL Glomerular Filtration Rate Calc 18.3 Calcium Level 9.9 mg/dl (8.4-10.2) Total Bilirubin 0.4 mg/dl (0.2-1.3) Aspartate Amino Transf (AST/SGOT) 34 U/L (0-35) Alanine Aminotransferase (ALT/SGPT) 28 U/L (0-56) Alkaline Phosphatase 75 U/L (0-126) Troponin I 0.026 ng/ml B-Type Natriuretic Peptide 513 pg/ml (0-100) Total Protein 7.2 g/dl (6.3-8.2) Albumin 4.0 g/dl (3.5-5.0) Human Chorionic Gonadotropin, Qual Negative (NEGATIVE) Urine Color Yellow Urine Clarity Clear Urine pH 5.0 pH (4.8-9.5) Urine Specific [place] 1.015 Urine Protein Negative mg/dL (NEGATIVE) Urine Glucose (UA) Negative mg/dL (NEGATIVE) Urine Ketones Negative mg/dL (NEGATIVE) Urine Blood Negative (NEGATIVE) Urine Nitrite Negative (NEGATIVE) Urine Bilirubin Negative (NEGATIVE) Urine Urobilinogen Negative mg/dL (0.2-1.9) Urine Leukocyte Esterase Negative (NEGATIVE) Urine RBC None /HPF (0-2/HPF) Urine WBC <1 /HPF (0-5/HPF) Urine Squamous Epithelial Cells None /LPF (NONE-FEW) Urine Bacteria Negative /HPF (NONE-FEW) Urine Hyaline Casts Many /LPF (NONE-FEW) Urine Mucus None /HPF (NONE-FEW) Urinalysis Test 01/05/18 19:34 Urine Color Yellow Urine Clarity Clear Urine pH 5.0 pH (4.8-9.5) Urine Specific [place] 1.015 Urine Protein Negative mg/dL (NEGATIVE) Urine Glucose (UA) Negative mg/dL (NEGATIVE) Urine Ketones Negative mg/dL (NEGATIVE) Urine Blood Negative (NEGATIVE) Urine Nitrite Negative (NEGATIVE) Urine Bilirubin Negative (NEGATIVE) Urine Urobilinogen Negative mg/dL (0.2-1.9) Urine Leukocyte Esterase Negative (NEGATIVE) Urine RBC None /HPF (0-2/HPF) Urine WBC <1 /HPF (0-5/HPF) Urine Squamous Epithelial Cells None /LPF (NONE-FEW) Urine Bacteria Negative /HPF (NONE-FEW) Urine Hyaline Casts Many /LPF (NONE-FEW) Urine Mucus None /HPF (NONE-FEW) EKG/Imaging EKG Interpretation 12 lead EKG: Rhythm: normal sinus rhythm [place]: normal QRS: normal ST segments: normal Imaging EXAMINATION: PA and Lateral Chest 01/05/2018 5:58 PM HISTORY: RESP DISTRESS COMPARISON: 03/27/2017 FINDINGS: Cardiomediastinal contours: Stable cardiac contours with prominence over the pulmonary outflow tract. Aorta is atherosclerotic. Atrial septal closure device. Lungs and pleura: Pulmonary vasculature and markings are similar to previous. No acute focal infiltrate or consolidation. Pleural spaces are clear. Bones/soft tissues: Osteopenia. T12 and L1 compression deformities, not significantly changed. IMPRESSION: Stable chest without acute cardiopulmonary finding. Report Dictated By: Ismael Hernandez MD at 01/05/2018 7:50 PM Report E-Signed By: Ismael Hernandez MD at 01/05/2018 7:53 PM EXAMINATION: Lumbar spine, 5 views with obliques 01/05/2018 5:58 PM HISTORY: Lower back pain. Respiratory distress. COMPARISON: Bone survey 10/05/2017 with lumbar spine series 12/31/2014 FINDINGS: Osteopenia. Moderate T12 and L1 compression deformities are unchanged. No acute-appearing bony injury. Diffuse lumbar spondylosis with vacuum disc from L3-4 downward. L4-5 retrolisthesis is similar to previous. No acute-appearing bony finding. Atherosclerotic vascular calcifications. 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 IMPRESSION: Degenerative changes and chronic T12 and L1 compression deformities. No acute bony finding in the lumbar spine. Report Dictated By: Ismael Hernandez MD at 01/05/2018 7:53 PM Report E-Signed By: Ismael Hernandez MD at 01/05/2018 7:56 PM ED Course/Re-evaluation ED Course Patient was admitted to exam room, history and physical were obtained. Differential diagnoses were considered. On examination lungs are wheezy to auscultation, heart is regular, abdomen soft nontender. Patient did have tenderness to the lumbar spine the L1 region. A CBC, CMP, troponin, EKG, chest x-ray, lumbar x-ray were done. Patient did have a troponin that was 0.028, BNP was elevated at 513. Creatinine was elevated at 2.5 with a BUN of 52. Urinalysis was obtained which was negative for urinary tract infection. CBC was unremarkable for signs of infection. Lumbar x-ray was negative for acute findings, however was suspicious for chronic compression fractures of T12 and L1. Chest x-ray showed no acute cardiopulmonary processes. I discussed the findings with the patient and her family. I believe that with the elevated creatinine and BUN, last checked was approximately a month ago they were 1.3 and 48 at that time, that she should be admitted. I discussed case with Dr. Green, hospitalist, he came down to the emergency room and evaluated the patient. He agreed to accept the patient for admission. Patient admitted to the hospital. Her and her family verbalized understanding and agreement with plan. Decision to Disposition Date: Jan 05, 2018 Decision to Disposition Time: 20:56 Depart Departure Latest Vital Signs Vital Signs Date Time Temp Pulse Resp B/P (MAP) Pulse Ox O2 Delivery O2 Flow Rate FiO2 01/05/18 18:34 75 22 96 01/05/18 18:30 137/62 (87) 01/05/18 18:13 Nasal Cannula 3.0 01/05/18 17:44 98.5 Impression: Primary Impression: COPD (chronic obstructive pulmonary disease) Additional Impression: Acute renal failure Condition: Condition Unchanged Disposition: Admitted from ER Referrals: ALEXANDER CASTANON APRNP-C (PCP) Problem Qualifiers Primary Impression: COPD (chronic obstructive pulmonary disease) COPD type: COPD with acute exacerbation Qualified Codes: J44.1 - Chronic obstructive pulmonary disease with (acute) exacerbation Additional Impression: Acute renal failure Acute renal failure type: unspecified Qualified Codes: N17.9 - Acute kidney failure, unspecified JOVANNI MILLIGAN [employer] OWNER Jan 05, 2018 17:49
[2018-01-05] MEDS ORDERED: FURO40TA35 PO (17:51)
[2018-01-05] MEDS ORDERED: ALBUTEROL/IPRATROPIUM 3 ML NEB NEB ONE (18:00)
[2018-01-05 18:07] LABS: PLATELET COUNT, AUTOMATED 217 K/uL (150-450)
--- NOTE | 2018-01-05 18:23 | EKG ---
[place] [facility] [place] NAME: PK VILLAFANA : [id number] MR: [id number] V: [id number] EXAM DATE: ORDERING PHYSICIAN: JOVANNI MILLIGAN TECHNOLOGIST: Test Reason : Blood Pressure : / mmHG Vent. Rate : 074 BPM Atrial Rate : 073 BPM P-R Int : 144 ms QRS Dur : 084 ms QT Int : 386 ms P-R-T Axes : 016 070 065 degrees QTc Int : 428 ms Sinus rhythm with baseline artifact making interpretation difficult No obvious ST-T abnormalities When compared with ECG of 29-JAN-2017 17:12, Relatively unchanged Confirmed by LEENA BROUSSARD ([id number]) on 01/05/2018 9:17:26 PM Referred By: Confirmed By:LEENA BROUSSARD
--- NOTE | 2018-01-05 19:57 | RADIOLOGY IMAGING REPORT ---
FACILITY: [facility] PATIENT NAME: Yuly Truong : 1930 MR: [id number] V: [id number] EXAM DATE: ORDERING PHYSICIAN: JOVANNI MILLIGAN TECHNOLOGIST: Location: [facility] Patient: Yuly Truong : 1930 Visit/Account:[id number] Date of Sevice: 01/05/2018 EXAMINATION: PA and Lateral Chest 01/05/2018 5:58 PM HISTORY: RESP DISTRESS COMPARISON: 03/27/2017 FINDINGS: Cardiomediastinal contours: Stable cardiac contours with prominence over the pulmonary outflow tract. Aorta is atherosclerotic. Atrial septal closure device. Lungs and pleura: Pulmonary vasculature and markings are similar to previous. No acute focal infiltra te or consolidation. Pleural spaces are clear. Bones/soft tissues: Osteopenia. T12 and L1 compression deformities, not significantly changed. IMPRESSION: Stable chest without acute cardiopulmonary finding. Report Dictated By: Ismael Hernandez MD at 01/05/2018 7:50 PM Report E-Signed By: Ismael Hernandez MD at 01/05/2018 7:53 PM WSN:[id number]
--- NOTE | 2018-01-05 19:59 | RADIOLOGY IMAGING REPORT ---
FACILITY: [facility] PATIENT NAME: Yuly Truong : 1930 MR: [id number] V: [id number] EXAM DATE: ORDERING PHYSICIAN: JOVANNI MILLIGAN TECHNOLOGIST: Location: [facility] Patient: Yuly Truong : 1930 Visit/Account:[id number] Date of Sevice: 01/05/2018 EXAMINATION: Lumbar spine, 5 views with obliques 01/05/2018 5:58 PM HISTORY: Lower back pain. Respiratory distress. COMPARISON: Bone survey 10/05/2017 with lumbar spine series 12/31/2014 FINDINGS: Osteopenia. Moderate T12 and L1 compression deformities are unchanged. No acute-appearing bony injury. Diffuse lumbar spondylosis with vacuum disc from L3-4 downward. L4-5 retrolisthesis is s imilar to previous. No acute-appearing bony finding. Atherosclerotic vascular calcifications. ASD suzan sure device in place. IMPRESSION: Degenerative changes and chronic T12 and L1 compression deformities. No acute bony findin g in the lumbar spine. Report Dictated By: Ismael Hernandez MD at 01/05/2018 7:53 PM Report E-Signed By: sImael Hernandez MD at 01/05/2018 7:56 PM WSN:[email or web address]
[2018-01-05] MEDS ORDERED: methylPREDNIS SUCC 125 MG/2ML IVP ONE (20:55)
[2018-01-05] MEDS ORDERED: INFLUENZA VIRUS VAC 0.5ML SYR IM ONLY ONE (21:00)
[2018-01-05] MEDS: PATCH REMOVAL 1 EA TP SCH (21:00)
[2018-01-05] MEDS ORDERED: ACETAMINOPHEN 500 MG TAB PO PRN (21:00)
[2018-01-05] MEDS ORDERED: NS(*) 0.9% 1000 ML BAG 1,000 ML IV ONE (21:35)
[2018-01-05] MEDS ORDERED: traMADol 50 MG TAB PO PRN (21:45)
--- NOTE | 2018-01-05 21:51 | History & Physical ---
History of Present Illness History of Present Illness 87yo female with a h/o HFpEF and COPD who came to the ER for cough, SOB and low back pain. The history is from the patient's daughter and some from the patient. The patient has had the low back pain for a couple of months. It seems to improve and then is exacerbated by a fall. The pain was limiting her ability to ambulate tonight. She has had a more productive cough for a couple of days and PARDO. She reports some mild intermittent left sided chest pain with no alleviating or aggravating factors for a couple of days. The daughter has noticed that the patient falls a lot and has been for about a month. She is supposed to use a walker, but isn't faithful about it. The falls are not to one side, but more a balance/generalized weakness issue. The daughter denies that the patient has had focal weakness or facial droop. The patient denies edema, orthopnea, nausea, vomiting, fevers, or chills. In the ER, the patient received a DuoNeb that helped. History Problems: (1) COPD (chronic obstructive pulmonary disease) Status: Chronic (2) Congestive heart failure Status: Chronic (3) Renal insufficiency Status: Chronic (4) CAD (coronary artery disease) Status: Chronic (5) Coronary artery disease Status: Chronic (6) Gout Status: Chronic (7) Depression Status: Chronic (8) Anemia Status: Chronic (9) Abnormal serum protein electrophoresis Status: Chronic Home Meds Active Scripts Bupropion Hcl (WELLBUTRIN XL) 150 Mg Tab.er.24h, 1 TAB PO BID, #60 TAB 0 Refills 1 tab daily x 1 week then increase to 1 tab twice daily Prov:ALEXANDER CASTANON APRN-Lissa 11/30/17 [Transport WheelChair] No Conflict Check Prov:ALEXANDER CASTANON APRN-C 10/16/17 Metoprolol Succinate (METOPROLOL SUCCINATE) 25 Mg Tab.er.24h, 1 TAB PO BID, #180 TAB Prov:ALEXANDER CASTANON APRN 10/14/17 Amlodipine Besylate (AMLODIPINE BESYLATE) 5 Mg Tablet, 1 TAB PO QDAY, #90 TAB 3 Refills Prov:ALEXANDER CASTANON APRN 10/14/17 Allopurinol (Allopurinol) 300 Mg Tablet, 1 TAB PO QDAY, #90 TAB 3 Refills Prov:ALEXANDER CASTANON APRN-Lissa 10/14/17 Pravastatin Sodium (PRAVASTATIN SODIUM) 40 Mg Tablet, 1 TAB PO QDAY, #90 TAB 3 Refills Prov:ALEXANDER CASTANON APRN-Lissa 10/14/17 Tramadol Hcl (TRAMADOL HCL) 50 Mg Tablet, 1 TAB PO TID PRN for PAIN, #30 TAB 0 Refills Prov:ALEXANDER CASTANON APRN-C 09/14/17 Albuterol Sulfate 90 Mcg/Act (PROAIR HFA 90 MCG/ACT) 8.5 Gm Hfa.aer.ad, 2 PUFF IH QID PRN for WHEEZING, #1 INHALER 5 Refills Prov:ALEXANDER CASTANON APRN 08/14/17 [Portable Oxygen] No Conflict Check Prov:ALEXANDER CASTANON APRN 10/30/15 Fluticasone/Salmeterol (ADVAIR 250-50 DISKUS) 1 Each Inh, 1 EACH INH BIDR, #1 DISK Prov:OLIVERIO VALDERRAMA MD 04/12/14 Reported Medications Furosemide (LASIX) 40 Mg Tablet, 1 TAB PO QDAY, TAB 01/05/18 Gabapentin (GABAPENTIN) 100 Mg Capsule, 200 MG PO TID, CAPSULE 12/29/17 Cyanocobalamin (Vitamin B-12) (B-12) 1,000 Mcg Tablet, 1 TAB PO DAILY 09/14/17 Ranitidine Hcl (ZANTAC) 150 Mg Tablet, 150 MG PO DAILY, TAB 08/14/17 Acetaminophen (TYLENOL EXTRA STRENGTH) 500 Mg Tablet, 2 TAB PO TID, TAB 03/03/17 Ipratropium/Albuterol Sulfate (IPRAT-ALBUT 0.5-3(2.5) MG/3 ML) 3 Ml Ampul.neb, 3 ML IH Q4-6H PRN for SHORTNESS OF BREATH 05/15/16 Aspirin (ASPIRIN) 81 Mg Tab.chew, 81 MG PO QDAY, TAB.CHEW 05/15/16 Multivitamin (MULTI-VITAMIN DAILY) 1 Each Tablet, 1 EACH PO QDAY 03/08/14 Discontinued Scripts Furosemide (LASIX) 40 Mg Tablet, 1-2 TAB PO BID, #90 TAB 3 Refills Take 2 tabs morning and 1 tab afternoon Prov:ALEXANDER CASTANON APRN 10/20/17 Duloxetine HCl (Duloxetine HCl) 30 Mg Capsule.dr, 1 CAP PO DAILY, #10 TAB 0 Refills 1 tab daily x 1 week then one tab every other day x 1 week then stop Prov:ALEXANDER CASTANON APRN-Lissa 11/30/17 Prazosin Hcl (PRAZOSIN HCL) 2 Mg Capsule, 1-2 CAP PO QHS, #60 CAPSULE 0 Refills 1 tab daily at bedtime. If no improvement in sleep and nightmares after 2 weeks may increase to 2 tabs at bedtime. Prov:ALEXANDER CASTANON APRN 10/16/17 Gabapentin (NEURONTIN) 100 Mg Capsule, 1 TAB PO TID, #270 CAPSULE 1 Refill Prov:ALEXANDER CASTANON APRN 07/03/17 Allergies: Coded Allergies: No Known Drug Allergies (Unverified , 01/05/18) Patient History: FH: diabetes mellitus CHILD, Age:53 Hx Smoking: No Smoking Status: Former Smoker Exposure to Second Hand Smoke?: Yes Caffeine Intake: Coffee, Tea Caffeine/Cups Per Day: 4 Hx Alcohol Use: No Hx Substance Use Disorder: No Social Drug Use: Never Review of Systems All Systems Reviewed/Normal: Yes, Except as Noted Exam Vital Signs Vital Signs Date Time Temp Pulse Resp B/P (MAP) Pulse Ox O2 Delivery O2 Flow Rate FiO2 01/05/18 18:34 75 22 96 01/05/18 18:30 137/62 (87) 01/05/18 18:13 Nasal Cannula 3.0 01/05/18 17:44 98.5 General Appearance: Alert, Awake, Other (Mild increased wob) Neuro: No Gross deficits (The cognitive exam is limited because the patient doesn't speak Bulgarian as her first language) Eyes: PERRLA ENT: Moist Mucous Membranes Cardiovascular: Regular Rate and Rhythm, No JVD Respiratory: Other (Bilateral exp wheezes. No crackles. Moving air well to the bases.) GI: Abd Soft and Non-Tender Extremities: No Edema Integumentary: No Jaundice, No Cyanosis Medical Decision Making Data Points Result Diagram: 01/05/18 17501/05/18 175 Item Value Date Time Creatinine 2.50 mg/dl H 01/05/18 1751 Creatinine 1.30 mg/dl H 11/26/17 1200 B-Type Natriuretic Peptide 513 pg/ml H 01/05/18 1751 B-Type Natriuretic Peptide 151 pg/ml H 08/07/17 1457 Troponin I 0.026 ng/ml 01/05/18 175 Total Bilirubin 0.4 mg/dl 01/05/18 175 Aspartate Amino Transf (AST/SGOT) 34 U/L 01/05/18 1751 Alanine Aminotransferase (ALT/SGPT) 28 U/L 01/05/18 175 Alkaline Phosphatase 75 U/L 01/05/18 175 Calcium Level 9.9 mg/dl 01/05/18 175 Urine Hyaline Casts Many /LPF H 01/05/18 193 Urine Bacteria Negative /HPF 01/05/18 193 Urine Squamous Epithelial Cells None /LPF 01/05/181933 Urine WBC <1 /HPF 01/05/18 193 Urine Leukocyte Esterase Negative 01/05/18 193 Urine RBC None /HPF 01/05/18 193 Neutrophils (%) (Auto) 59.7 % 01/05/18 175 Lymphocytes (%) (Auto) 27.9 % 01/05/181750 Monocytes (%) (Auto) 7.7 % 01/05/181750 Eosinophils (%) (Auto) 4.0 % 01/05/181750 Basophils (%) (Auto) 0.7 % 01/05/181750 Nucleated RBC Relative Count (auto) 0.1 /100WBC 01/05/18 175 Neutrophils # (Auto) 5.1 K/uL 01/05/18 175 Hemoglobin 11.0 g/dL L 01/05/18 1751 Hemoglobin 11.1 g/dL L 11/26/17 1200 Hemoglobin 11.2 g/dL L 09/24/17 1634 EKG / Imaging EKG Interpretation Vent. Rate : 074 BPM Atrial Rate : 073 BPM P-R Int : 144 ms QRS Dur : 084 ms QT Int : 386 ms P-R-T Axes : 016 070 065 degrees QTc Int : 428 ms Sinus rhythm with baseline artifact making interpretation difficult No obvious ST-T abnormalities When compared with ECG of 29-JAN-2017 17:12, Relatively unchanged Confirmed by LEENA BROUSSARD ([id number]) on 01/05/2018 9:17:26 PM Imaging Lumbar Spine Xray - Degenerative changes and chronic T12 and L1 compression deformities. No acute bony finding in the lumbar spine. CXR - Stable chest without acute cardiopulmonary finding. Assessment and Plan Problems: (1) COPD exacerbation Status: Acute Assessment & Plan: She presented with a couple of days of productive cough and worsening SOB. Her WBC is normal. She is afebrile. Her O2 requirement is at baseline. Will treat with IV methylprednisolone, Mucinex, Robitussin DM, DuoNeb and prn albuterol. (2) Acute renal failure Status: Acute Assessment & Plan: Her creatinine is up to 2.5 from 1.3 about a month ago. She denies decreased oral intake. Because she doesn't appear to be in a CHF exacerbation, will give a liter of fluid and then reevaluate the BMP and symptoms. Holding Lasix. (3) Low back pain Status: Acute Assessment & Plan: She has had intermittent pain for about a month. She is falling more. She was generally tender over the sacrum. The Xray didn't show any obvious fractures. Will ask OT/PT to evaluate. Will try Lidoderm and APAP for pain relief. She might need a CT of the pelvis/L-spine if the symptoms persist. The patient is chronically on Gabapentin and was supposed to increase to 200mg tid, but is still on 100mg tid because the daughter was worried about increased falls. Will continue the original dose. (4) (HFpEF) heart failure with preserved ejection fraction Status: Chronic Assessment & Plan: Chronically on Lasix. Preserved EF on nuclear imaging study in September of 2017. The BNP is elevated from baseline, but could be related to increased WOB. She has no crackles and the CXR is clear. Will recheck a BNP and follow symptoms following the fluid bolus. Recheck troponin tomorrow, also. (5) Depression Status: Chronic Assessment & Plan: Continue chronic Wellbutrin. (6) Coronary artery disease Status: Chronic Assessment & Plan: Chronically on ASA and Pravastatin. Will hold ASA for now because of the ARF. (7) Abnormal serum protein electrophoresis Status: Chronic (8) CKD (chronic kidney disease) stage 3, GFR 30-59 ml/min Status: Chronic Copies to: ALEXANDER CASTANON APRN VP SECURITY-C ; Venous Thromboembolism Antithrombotics Is Pt On Any Antithrombotics?: No Heart Failure Ejection Fraction %: 70 RVSP (mmHg): 60 NYHA Class: III Is Patient on AMY Inhibitor?: No Is Patient on Beta Dc?: No Admission Weight: 195 Exam Sepsis Risk: No Definite Risk Problem Qualifiers (1) Acute renal failure: Acute renal failure type: unspecified Qualified Codes: N17.9 - Acute kidney failure, unspecified LEENA BROUSSARD MD Jan 05, 2018 21:51
[2018-01-05 22:01] VITALS: BP 142/62
[2018-01-05] MEDS: METOPROLOL SUCC XL 25 MG TABCR PO SCH (22:45)
[2018-01-05] MEDS: guaiFENesin 600 MG TABCR PO SCH (22:45)
[2018-01-05] MEDS: buPROPion XL 150 MG TABCR PO SCH (23:04)
[2018-01-05] MEDS: ALBUTEROL 2.5 MG/3 ML NEB NEB PRN (23:33)
[2018-01-06] MEDS: methylPREDNIS SUCC 125 MG/2ML IVP SCH ×3 (01:13→17:51)
[2018-01-06] MEDS: GUAIFENESIN/DEXTROMETHORPHAN 5 ML PO PRN ×2 (01:20→18:01)
[2018-01-06] MEDS: ALBUTEROL/IPRATROPIUM 3 ML NEB NEB SCH ×3 (05:17→17:06)
[2018-01-06] MEDS: SALMETEROL/FLUTIC 250/50 1 INH INH SCH ×2 (05:17→17:14)
[2018-01-06 06:15] LABS: PLATELET COUNT, AUTOMATED 187 K/uL (150-450)
[2018-01-06] MEDS ORDERED: amLODIPine BESYL(*) 5 MG TAB PO SCH (09:00)
[2018-01-06 09:25] VITALS: BP 134/53
[2018-01-06] MEDS: RANITIDINE HCL 150 MG TAB PO SCH (09:31)
[2018-01-06] MEDS: buPROPion XL 150 MG TABCR PO SCH ×2 (09:31→21:19)
[2018-01-06] MEDS: ALLOPURINOL 300 MG TAB PO SCH (09:31)
[2018-01-06] MEDS: GABAPENTIN 100 MG CAP PO SCH ×3 (09:31→21:20)
[2018-01-06] MEDS: METOPROLOL SUCC XL 25 MG TABCR PO SCH ×2 (09:31→21:20)
[2018-01-06] MEDS: guaiFENesin 600 MG TABCR PO SCH ×2 (09:34→21:19)
[2018-01-06] MEDS: LIDOCAINE 5% PATCH TP SCH (09:36)
[2018-01-06] MEDS: ENOXAPARIN 30 MG/0.3 ML SYR SC SCH (09:43)
[2018-01-06] MEDS: ALBUTEROL 2.5 MG/3 ML NEB NEB PRN (09:48)
--- NOTE | 2018-01-06 10:39 | Hospitalist Progress Note ---
Subjective Progress Notes Subjective She reports feeling "better". Still some wheezing/cough. Physical Exam Vital Signs Date Time Temp Pulse Resp B/P (MAP) Pulse Ox O2 Delivery O2 Flow Rate FiO2 01/06/18 09:57 86 16 01/06/18 09:48 94 Nasal Cannula 3.0 01/06/18 09:25 98.5 134/53 (80) General Appearance: Alert, Awake Cardiovascular: Regular Rate and Rhythm Respiratory: Other (expiratory wheezes bilaterall/scattered rhonchi) Chest: No Tenderness GI: Soft and Non-Tender Extremities: Warm, Perfused Result Diagram: 01/06/1853501/06/18535 Assessment and Plan Problems: (1) COPD exacerbation Status: Acute Assessment & Plan: Clinically some minor improvements. She presented with a couple of days of productive cough and worsening SOB. Her O2 requirement is at baseline. She is currently on IV methylprednisolone, Mucinex, Robitussin DM, DuoNeb and prn albuterol. No changes at this time. (2) Acute renal failure Status: Acute Assessment & Plan: Most likely due to dehydration/diuresis. Her creatinine was up to 2.5 (from 1.3 about a month ago). She doesn't appear to be in an acute CHF exacerbation. Creatinine improved with gentle IV fluids (now 1.9). Holding Lasix. (3) Low back pain Status: Acute Assessment & Plan: She has had intermittent pain for about a month. She has been falling more. She was generally tender over the sacrum. The X-ray didn't show any obvious fractures. OT/PT to evaluate. Lidoderm and APAP for pain relief. She might need a CT of the pelvis/L-spine if the symptoms persist. The patient is chronically on Gabapentin and was supposed to increase to 200mg TID, but is still on 100mg TID because the daughter was worried about increased falls. Will continue the smaller dose for now. (4) (HFpEF) heart failure with preserved ejection fraction Status: Chronic Assessment & Plan: Chronically on Lasix. Preserved EF on nuclear imaging study in September of 2017. The BNP is elevated from baseline, but could be related to increased right sided pressures/pulmonary HTN. CXR is clear. Will re-check echocardiogram. (5) Depression Status: Chronic Assessment & Plan: Continue chronic Wellbutrin. (6) Coronary artery disease Status: Chronic Assessment & Plan: Chronically on ASA and Pravastatin. Will hold ASA for now because of the ARF. (7) Abnormal serum protein electrophoresis Status: Chronic (8) CKD (chronic kidney disease) stage 3, GFR 30-59 ml/min Status: Chronic Heart Failure Ejection Fraction %: 70 RVSP (mmHg): 60 NYHA Class: III Is Patient on AMY Inhibitor?: No Is Patient on Beta Dc?: No Admission Weight: 195 Exam Sepsis Risk: No Definite Risk Problem Qualifiers (1) Acute renal failure: Acute renal failure type: unspecified Qualified Codes: N17.9 - Acute kidney failure, unspecified DIETER VALDERRAMA MD Jan 06, 2018 10:39
[2018-01-06 10:43] VITALS: Ht 152.4 cm; Wt 80.7 kg
[2018-01-06 11:16] VITALS: BP 129/58
[2018-01-06 16:03] VITALS: BP 123/48
[2018-01-06 19:38] VITALS: BP 137/51
[2018-01-06] MEDS: PATCH REMOVAL 1 EA TP SCH (21:00)
[2018-01-06] MEDS: PRAVASTATIN SOD 20 MG TAB PO SCH (21:19)
[2018-01-07] MEDS: GUAIFENESIN/DEXTROMETHORPHAN 5 ML PO PRN ×3 (01:19→21:21)
[2018-01-07] MEDS: methylPREDNIS SUCC 125 MG/2ML IVP SCH ×3 (01:20→17:36)
[2018-01-07] MEDS: ALBUTEROL 2.5 MG/3 ML NEB NEB PRN ×3 (02:44→23:14)
[2018-01-07] MEDS: ALBUTEROL/IPRATROPIUM 3 ML NEB NEB SCH ×3 (05:29→18:32)
[2018-01-07] MEDS: SALMETEROL/FLUTIC 250/50 1 INH INH SCH ×2 (05:30→18:32)
[2018-01-07 05:41] LABS: PLATELET COUNT, AUTOMATED 209 K/uL (150-450)
[2018-01-07 09:02] VITALS: BP 131/57
[2018-01-07] MEDS: RANITIDINE HCL 150 MG TAB PO SCH (09:06)
[2018-01-07] MEDS: ENOXAPARIN 30 MG/0.3 ML SYR SC SCH (09:06)
[2018-01-07] MEDS: ALLOPURINOL 300 MG TAB PO SCH (09:06)
[2018-01-07] MEDS: METOPROLOL SUCC XL 25 MG TABCR PO SCH ×2 (09:06→21:21)
[2018-01-07] MEDS: GABAPENTIN 100 MG CAP PO SCH ×3 (09:06→21:22)
[2018-01-07] MEDS: buPROPion XL 150 MG TABCR PO SCH ×2 (09:07→21:22)
[2018-01-07] MEDS: LIDOCAINE 5% PATCH TP SCH (09:11)
[2018-01-07] MEDS: guaiFENesin 600 MG TABCR PO SCH ×2 (09:19→21:24)
[2018-01-07] MEDS: BENZONATATE 100 MG CAP PO PRN ×2 (09:19→19:03)
--- NOTE | 2018-01-07 10:58 | Hospitalist Progress Note ---
Subjective Progress Notes Subjective Still wheezy. Patient reports continued coughing that inhibits sleep. Staff feels that the patient has less WOB. Physical Exam Vital Signs Date Time Temp Pulse Resp B/P (MAP) Pulse Ox O2 Delivery O2 Flow Rate FiO2 01/07/18 09:02 98.7 104 21 131/57 (81) 95 Nasal Cannula 3.0 Intake and Output 01/07/18 07:00 Intake Total 730 ml Balance 730 ml Intake Oral 730 ml # Voids 6 General Appearance: Other (Awakened easily. Breathing comfortably while sleeping. Had mild increase WOB while awake with auditory exp wheezing.) Cardiovascular: Regular Rate and Rhythm Respiratory: Other (No crackles. Moving air well in the bases. Has audible exp wheezes that are heard diffusely with auscultation.) Extremities: No Edema Result Diagram: 01/07/1852001/07/18520 Assessment and Plan Problems: (1) COPD exacerbation Status: Acute Assessment & Plan: Clinically some minor improvements. She presented with a couple of days of productive cough and worsening SOB. Her O2 requirement is at baseline. She is currently on IV methylprednisolone, Mucinex, Robitussin DM, DuoNeb and prn albuterol. Will add Tessalon Perles for the cough. The patient has mostly upper airway wheezing. She has a h/o CT findings suggestive of septations in the trachea, which could be contributing. (2) Acute renal failure Status: Acute Assessment & Plan: Most likely due to dehydration/diuresis. Her creatinine was up to 2.5 (from 1.3 about a month ago). She doesn't appear to be in an acute CHF exacerbation. BNP improving despite hydration. Creatinine improved with gentle IV fluids (now 1.7). Holding Lasix. (3) Low back pain Status: Acute Assessment & Plan: She has had intermittent pain for about a month. She has been falling more. She was generally tender over the sacrum. The X-ray didn't show any obvious fractures. OT/PT seeing patient and recommending short term subacute rehab. Lidoderm and APAP for pain relief. She might need a CT of the pelvis/L-spine if the symptoms persist. The patient is chronically on Gabapentin and was supposed to increase to 200mg TID, but is still on 100mg TID because the daughter was worried about increased falls. Will continue the smaller dose for now. (4) (HFpEF) heart failure with preserved ejection fraction Status: Chronic Assessment & Plan: Chronically on Lasix. Preserved EF on nuclear imaging study in September of 2017. The BNP is elevated from baseline, but could be related to increased right sided pressures/pulmonary HTN. CXR is clear. Echo done on 01/06 is relatively unchanged from previous. See above. (5) Depression Status: Chronic Assessment & Plan: Continue chronic Wellbutrin. (6) Coronary artery disease Status: Chronic Assessment & Plan: Chronically on ASA and Pravastatin. Will hold ASA for now because of the ARF. (7) Abnormal serum protein electrophoresis Status: Chronic (8) CKD (chronic kidney disease) stage 3, GFR 30-59 ml/min Status: Chronic Heart Failure Ejection Fraction %: 70 RVSP (mmHg): 60 NYHA Class: III Is Patient on AMY Inhibitor?: No Is Patient on Beta Dc?: No Admission Weight: 195 Exam Sepsis Risk: No Definite Risk Problem Qualifiers (1) Acute renal failure: Acute renal failure type: unspecified Qualified Codes: N17.9 - Acute kidney failure, unspecified LEENA BROUSSARD MD Jan 07, 2018 10:58
[2018-01-07 12:57] VITALS: BP 136/66
[2018-01-07] MEDS: AZITHROMYCIN(*) 500 MG 500 MG in NS(*) 0.9% 250 ML BAG 250 ML IVPB SCH (16:30)
[2018-01-07 20:25] VITALS: BP 156/75
[2018-01-07] MEDS: PATCH REMOVAL 1 EA TP SCH (21:00)
[2018-01-07] MEDS: PRAVASTATIN SOD 20 MG TAB PO SCH (21:22)
[2018-01-08] MEDS: methylPREDNIS SUCC 125 MG/2ML IVP SCH ×3 (01:33→17:17)
[2018-01-08] MEDS: ALBUTEROL/IPRATROPIUM 3 ML NEB NEB SCH ×3 (05:56→17:07)
[2018-01-08] MEDS: SALMETEROL/FLUTIC 250/50 1 INH INH SCH ×2 (05:57→17:16)
[2018-01-08] MEDS: GUAIFENESIN/DEXTROMETHORPHAN 5 ML PO PRN ×2 (06:10→22:48)
[2018-01-08] MEDS: BENZONATATE 100 MG CAP PO PRN (06:10)
[2018-01-08 06:17] LABS: PLATELET COUNT, AUTOMATED 207 K/uL (150-450)
[2018-01-08 08:13] VITALS: BP 144/70
[2018-01-08] MEDS: METOPROLOL SUCC XL 25 MG TABCR PO SCH ×2 (08:22→20:24)
[2018-01-08] MEDS: buPROPion XL 150 MG TABCR PO SCH ×2 (08:24→20:24)
[2018-01-08] MEDS: GABAPENTIN 100 MG CAP PO SCH ×3 (08:24→20:24)
[2018-01-08] MEDS: ALLOPURINOL 300 MG TAB PO SCH (08:24)
[2018-01-08] MEDS: RANITIDINE HCL 150 MG TAB PO SCH (08:24)
[2018-01-08] MEDS: ALBUTEROL 2.5 MG/3 ML NEB NEB PRN ×2 (08:33→22:55)
[2018-01-08] MEDS: LIDOCAINE 5% PATCH TP SCH (08:48)
[2018-01-08] MEDS: guaiFENesin 600 MG TABCR PO SCH ×2 (08:49→20:28)
[2018-01-08] MEDS: ENOXAPARIN 30 MG/0.3 ML SYR SC SCH (08:49)
[2018-01-08] MEDS ORDERED: BISACODYL 10 MG SUPP PR PRN (09:25)
[2018-01-08] MEDS ORDERED: MAGNESIUM HYDROXIDE* 30ML UDCP PO PRN (09:25)
[2018-01-08] MEDS: POLYETHYLENE GLYCOL 17 GM PKT PO SCH (09:43)
[2018-01-08] MEDS: DOCUSATE SODIUM 100 MG CAP PO SCH ×2 (09:43→20:24)
[2018-01-08 10:46] VITALS: BP 164/76
--- NOTE | 2018-01-08 11:42 | Hospitalist Progress Note ---
Subjective Progress Notes Subjective She has complaints of increased coughing, sputum production, and feels more SOB this morning. She still has audible wheezes. . Patient Complains of: Cardiovascular: No: Chest Pain Respiratory: Cough, Shortness of Breath, Wheezing Physical Exam Vital Signs Date Time Temp Pulse Resp B/P (MAP) Pulse Ox O2 Delivery O2 Flow Rate FiO2 01/08/18 10:46 98.0 107 22 164/76 (105) 85 Nasal Cannula 5.0 Intake and Output 01/08/18 06:59 Intake Total 1410 ml Balance 1410 ml Intake Oral 1160 ml IV Total 250 ml # Voids 5 General Appearance: Alert, Awake, No Acute Distress, Afebrile Neuro: No Gross deficits Cardiovascular: Regular Rate and Rhythm Respiratory: Other (scattered wheezes and rhonci throughout bilateral lung zamudio) GI: Soft and Non-Tender Extremities: Warm, Perfused; No Edema Psych: Alert & Oriented X3, Appropriate Mood & Affect Result Diagram: 01/08/18 0542 01/08/18 0542 Assessment and Plan Problems: (1) COPD exacerbation Status: Acute Assessment & Plan: Clinically some minor improvements. She presented with a co uple of days of productive cough and worsening SOB. Her O2 requirement is at baseline. She is currently on IV methylprednisolone, Mucinex, Robitussin DM, DuoNeb and prn albuterol. Will add Tessalon Perles for the cough. The patient has mostly upper airway wheezing. She has a h/o CT findings suggestive of septations in the trachea, which could be contributing. We will repeat chest x- ray today. She was placed on Azithromycin yesterday. (2) Acute renal failure Status: Acute Assessment & Plan: Most likely due to dehydration/diuresis. Her creatinine was up to 2.5 (from 1.3 about a month ago). She doesn't appear to be in an acute CHF exacerbation. BNP improving despite hydration. Creatinine improved with gentle IV fluids (now 1.2). Holding Lasix. (3) Low back pain Status: Acute Assessment & Plan: She has had intermittent pain for about a month. She has b een falling more. She was generally tender over the sacrum. The X-ray didn't show any obvious fractures. OT/PT seeing patient and recommending short term subacute rehab. Lidoderm and APAP for pain relief. She might need a CT of the pelvis/L-spine if the symptoms persist. The patient is chronically on Gabapentin and was supposed to increase to 200mg TID, but is still on 100mg TID because the daughter was worried about increased falls. Will continue the smaller dose for now. (4) (HFpEF) heart failure with preserved ejection fraction Status: Chronic Assessment & Plan: Chronically on Lasix. Preserved EF on nuclear imaging study in September of 2017. The BNP is elevated from baseline, but could be related to increased right sided pressures/pulmonary HTN. CXR is clear. Echo done on 01/06 is relatively unchanged from previous. See above. (5) Depression Status: Chronic Assessment & Plan: Continue chronic Wellbutrin. (6) Coronary artery disease Status: Chronic Assessment & Plan: Chronically on ASA and Pravastatin. Will hold ASA for now because of the ARF. (7) Abnormal serum protein electrophoresis Status: Chronic (8) CKD (chronic kidney disease) stage 3, GFR 30-59 ml/min Status: Chronic Heart Failure Ejection Fraction %: 70 RVSP (mmHg): 60 NYHA Class: III Is Patient on AMY Inhibitor?: No Is Patient on Beta Dc?: No Admission Weight: 195 Exam Sepsis Risk: Sepsis Risk Problem Qualifiers (1) Acute renal failure: Acute renal failure type: unspecified Qualified Codes: N17.9 - Acute kidney failure, unspecified MARINA FARMER POULTRY FARMER MEAT Jan 08, 2018 11:42
--- NOTE | 2018-01-08 13:47 | RADIOLOGY IMAGING REPORT ---
FACILITY: [facility] - [place] PATIENT NAME: Yuly Truong : 1930 MR: [id number] V: [id number] EXAM DATE: ORDERING PHYSICIAN: MARINA FARMER TECHNOLOGIST: Location: [facility] [place] Patient: Yuly Truong : 1930 Visit/Account:[id number] Date of Sevice: 01/08/2018 CHEST, 1 view, portable at 1023 hours History: Wheezing, increased shortness of breath and cough COMPARISON: 01/05/2018 FINDINGS: Cardiac shadow is unchanged. Central pulmonary vasculature is nondistended. Thoracic aorta is moder ately calcified at the arch. Atrial septal closure device is noted. Lungs are expanded, and clear of consolidation and atelectasis. No pleural fluid collections or pneu mothorax. There are healed right posterior lateral rib fractures. IMPRESSION: No radiographic evidence of an acute chest process. Report Dictated By: Radha Melo MD at 01/08/2018 1:37 PM Report E-Signed By: Radha Melo MD at 01/08/2018 1:42 PM WSN:[email or web address]
[2018-01-08 14:55] VITALS: BP 152/75
[2018-01-08] MEDS ORDERED: NS(*) 0.9% 500 ML BAG 500 ML IV PRN (15:50)
[2018-01-08] MEDS: AZITHROMYCIN(*) 500 MG 500 MG in NS(*) 0.9% 250 ML BAG 250 ML IVPB SCH (17:16)
[2018-01-08 19:25] VITALS: BP 145/77
[2018-01-08] MEDS: PATCH REMOVAL 1 EA TP SCH (20:17)
[2018-01-08] MEDS: PRAVASTATIN SOD 20 MG TAB PO SCH (20:24)
[2018-01-08 23:34] VITALS: BP 144/69
[2018-01-09] MEDS: methylPREDNIS SUCC 125 MG/2ML IVP SCH ×3 (00:32→21:00)
[2018-01-09] MEDS: BENZONATATE 100 MG CAP PO PRN ×3 (04:14→23:13)
[2018-01-09 04:16] VITALS: BP 162/84
[2018-01-09] MEDS: ALBUTEROL/IPRATROPIUM 3 ML NEB NEB SCH ×3 (05:42→17:52)
[2018-01-09] MEDS: SALMETEROL/FLUTIC 250/50 1 INH INH SCH ×2 (05:42→17:52)
[2018-01-09 08:26] VITALS: BP 162/95
[2018-01-09] MEDS: guaiFENesin 600 MG TABCR PO SCH ×2 (08:33→21:58)
[2018-01-09] MEDS: RANITIDINE HCL 150 MG TAB PO SCH (08:33)
[2018-01-09] MEDS: ALLOPURINOL 300 MG TAB PO SCH (08:33)
[2018-01-09] MEDS: DOCUSATE SODIUM 100 MG CAP PO SCH ×2 (08:33→21:59)
[2018-01-09] MEDS: METOPROLOL SUCC XL 25 MG TABCR PO SCH ×2 (08:33→21:58)
[2018-01-09] MEDS: GABAPENTIN 100 MG CAP PO SCH ×3 (08:33→21:59)
[2018-01-09] MEDS: LIDOCAINE 5% PATCH TP SCH (08:33)
[2018-01-09] MEDS: ENOXAPARIN 30 MG/0.3 ML SYR SC SCH (08:34)
[2018-01-09] MEDS: POLYETHYLENE GLYCOL 17 GM PKT PO SCH (08:35)
[2018-01-09] MEDS: buPROPion XL 150 MG TABCR PO SCH ×2 (09:41→21:58)
--- NOTE | 2018-01-09 10:09 | Antimicrobial Stewardship ---
Antimicrobial Stewardship Empiricly appropriate: Yes Comment Started on Azithromycin 500 mg IV daily for COPD exacerbation. Reviewed for Drug Interaction: Yes Monitored for Toxicities: Yes Clinically stable/improving: No Comment Continues with SOB, increased coughing and sputum. IV to PO Opportunity: Yes Comment Can consider changing to PO after 3 days of IV. Determine cumulative duration: 5-10 days JUICE GARSIA Jan 09, 2018 10:09
[2018-01-09 10:58] VITALS: BP 152/85
--- NOTE | 2018-01-09 11:56 | Hospitalist Progress Note ---
Subjective Progress Notes Subjective She reports persistent cough/dyspnea. No fever. Physical Exam Vital Signs Date Time Temp Pulse Resp B/P (MAP) Pulse Ox O2 Delivery O2 Flow Rate FiO2 01/09/18 10:58 99.0 99 16 152/85 (107) 98 Nasal Cannula 3.0 Intake and Output 01/09/18 07:00 Intake Total 648 ml Balance 648 ml Intake Oral 360 ml IV Total 288 ml # Voids 2 # Bowel Movements 1 General Appearance: Alert, Awake Cardiovascular: Regular Rate and Rhythm Respiratory: Other (soft expiratory wheezes bilaterally) GI: Soft and Non-Tender Extremities: Warm, Perfused Result Diagram: 01/08/1854101/08/18541 Assessment and Plan Problems: (1) COPD exacerbation Status: Acute Assessment & Plan: Minor improvements - less wheezing. She presented with a couple of days of productive cough and worsening SOB. Her O2 requirement is at baseline. She is currently on IV methylprednisolone, Mucinex, Robitussin DM, DuoNeb/prn albuterol, Tessalon Perles, and azithromycin. The patient has mostly upper airway wheezing. She has a history of CT findings suggestive of se ptations in the trachea, which could be contributing. Repeat chest x-ray was unremarkable. She was placed on Azithromycin yesterday. (2) Acute renal failure Status: Acute Assessment & Plan: Most likely due to dehydration/diuresis. Her creatinine was up to 2.5 (from 1.3 about a month ago). She doesn't appear to be in an acute CHF exacerbation. BNP improving despite hydration. Creatinine improved with gentle IV fluids (now 1.2). Holding Lasix. (3) Low back pain Status: Acute Assessment & Plan: She has had intermittent pain for about a month. She has been falling more. She was generally tender over the sacrum. The X-ray didn't show any obvious fractures. OT/PT seeing patient and recommending short term subacute rehab. Lidoderm and APAP for pain relief. She might need a CT of the pelvis/L-spine if the symptoms persist. The patient is chronically on G abapentin and was supposed to increase to 200mg TID, but is still on 100mg TID because the daughter was worried about increased falls. Will continue the smaller dose for now. (4) (HFpEF) heart failure with preserved ejection fraction Status: Chronic Assessment & Plan: Chronically on Lasix. Preserved EF on nuclear imaging study in September of 2017. The BNP is elevated from baseline, but could be related to increased right sided pressures/pulmonary HTN. CXR is clear. Echo done on 01/06 is relatively unchanged from previous. See above. (5) Depression Status: Chronic Assessment & Plan: Continue chronic Wellbutrin. (6) Coronary artery disease Status: Chronic Assessment & Plan: Chronically on ASA and Pravastatin. Will hold ASA for now because of the ARF. (7) Abnormal serum protein electrophoresis Status: Chronic (8) CKD (chronic kidney disease) stage 3, GFR 30-59 ml/min Status: Chronic Heart Failure Ejection Fraction %: 70 RVSP (mmHg): 60 NYHA Class: III Is Patient on AMY Inhibitor?: No Is Patient on Beta Dc?: No Admission Weight: 195 Exam Sepsis Risk: No Definite Risk Problem Qualifiers (1) Acute renal failure: Acute renal failure type: unspecified Qualified Codes: N17.9 - Acute kidney failure, unspecified DIETER VALDERRAMA MD Jan 09, 2018 11:56
[2018-01-09 14:46] VITALS: BP 157/79
[2018-01-09] MEDS: GUAIFENESIN/DEXTROMETHORPHAN 5 ML PO PRN ×2 (14:53→23:13)
[2018-01-09] MEDS: AZITHROMYCIN(*) 500 MG 500 MG in NS(*) 0.9% 250 ML BAG 250 ML IVPB SCH (17:03)
[2018-01-09 18:47] VITALS: BP 147/75
[2018-01-09] MEDS: PATCH REMOVAL 1 EA TP SCH (21:00)
[2018-01-09] MEDS: PRAVASTATIN SOD 20 MG TAB PO SCH (21:58)
[2018-01-10 00:01] VITALS: BP 166/90
[2018-01-10 04:17] VITALS: BP 168/92
[2018-01-10] MEDS: ALBUTEROL/IPRATROPIUM 3 ML NEB NEB SCH ×3 (05:40→19:37)
[2018-01-10] MEDS: SALMETEROL/FLUTIC 250/50 1 INH INH SCH ×2 (05:40→19:37)
[2018-01-10 07:11] LABS: PLATELET COUNT, AUTOMATED 200 K/uL (150-450)
[2018-01-10 08:12] VITALS: BP 158/79
[2018-01-10] MEDS: ALLOPURINOL 300 MG TAB PO SCH (09:32)
[2018-01-10] MEDS: GABAPENTIN 100 MG CAP PO SCH ×3 (09:32→21:10)
[2018-01-10] MEDS: DOCUSATE SODIUM 100 MG CAP PO SCH ×2 (09:32→21:10)
[2018-01-10] MEDS: buPROPion XL 150 MG TABCR PO SCH ×2 (09:33→21:10)
[2018-01-10] MEDS: RANITIDINE HCL 150 MG TAB PO SCH (09:33)
[2018-01-10] MEDS: METOPROLOL SUCC XL 25 MG TABCR PO SCH ×2 (09:33→21:10)
[2018-01-10] MEDS: POLYETHYLENE GLYCOL 17 GM PKT PO SCH (09:34)
[2018-01-10] MEDS: methylPREDNIS SUCC 125 MG/2ML IVP SCH ×2 (09:35→21:15)
[2018-01-10] MEDS: guaiFENesin 600 MG TABCR PO SCH ×2 (09:37→21:10)
[2018-01-10] MEDS: ENOXAPARIN 30 MG/0.3 ML SYR SC SCH (09:38)
[2018-01-10] MEDS: LIDOCAINE 5% PATCH TP SCH (09:41)
--- NOTE | 2018-01-10 09:44 | Hospitalist Progress Note ---
Subjective Progress Notes Subjective Feeling a bit better, but still short of breath and wheezing. Coughing as well. Physical Exam Vital Signs Date Time Temp Pulse Resp B/P (MAP) Pulse Ox O2 Delivery O2 Flow Rate FiO2 01/10/18 08:12 98.8 98 20 158/79 (105) 95 Nasal Cannula 3.0 Intake and Output 01/10/18 07:00 Intake Total 1430 ml Balance 1430 ml Intake Oral 1180 ml IV Total 250 ml # Voids 5 # Bowel Movements 1 General Appearance: Alert, Awake, Other (Mild increased work of breathing.) Neuro: No Gross deficits Eyes: PERRLA Cardiovascular: Regular Rate and Rhythm Respiratory: Other (Scattered expiratory wheezes.) GI: Soft and Non-Tender Psych: Appropriate Mood & Affect Result Diagram: 01/10/1862101/10/18621 Assessment and Plan Problems: (1) COPD exacerbation Status: Acute Assessment & Plan: Minor improvements - less wheezing. She presented with a couple of days of productive cough and worsening SOB. Her O2 requirement is at baseline. She is currently on IV methylprednisolone, Mucinex, Robitussin DM, DuoNeb/prn albuterol, Tessalon Perles, and azithromycin. The patient has mostly upper airway wheezing. She has a history of CT findings suggestive of septations in the trachea, which could be contributing. Repeat chest x-ray was unremarkable. She was placed on Azithromycin to treat possible bronchitis. (2) Acute renal failure Status: Acute Assessment & Plan: Most likely due to dehydration/diuresis. Her creatinine was up to 2.5 (from 1.3 about a month ago). She doesn't appear to be in an acute CHF exacerbation. BNP improving despite hydration. Creatinine improved with gentle IV fluids (now 0.8). Holding Lasix. (3) Low back pain Status: Acute Assessment & Plan: She has had intermittent pain for about a month. She has been falling more. She was generally tender over the sacrum. The X-ray didn't show any obvious fractures. OT/PT seeing patient and recommending short term subacute rehab. Lidoderm and APAP for pain relief. She might need a CT of the pelvis/L-spine if the symptoms persist. The patient is chronically on Gabapentin and was supposed to increase to 200mg TID, but is still on 100mg TID because the daughter was worried about increased falls. Will continue the smaller dose for now. (4) (HFpEF) heart failure with preserved ejection fraction Status: Chronic Assessment & Plan: Chronically on Lasix. Preserved EF on nuclear imaging study in September of 2017. The BNP is elevated from baseline, but could be related to increased right sided pressures/pulmonary HTN. CXR is clear. Echo done on 01/06 is relatively unchanged from previous. See above. (5) Depression Status: Chronic Assessment & Plan: Continue chronic Wellbutrin. (6) Coronary artery disease Status: Chronic Assessment & Plan: Chronically on ASA and Pravastatin. Will hold ASA for now because of the ARF. (7) Abnormal serum protein electrophoresis Status: Chronic (8) CKD (chronic kidney disease) stage 3, GFR 30-59 ml/min Status: Chronic Assessment & Plan: Creatinine has improved with hydration and holding diuretics. Time Spent on Plan of Care: < 30 min Heart Failure Ejection Fraction %: 70 RVSP (mmHg): 60 NYHA Class: III Is Patient on AMY Inhibitor?: No Is Patient on Beta Dc?: No Admission Weight: 195 Exam Sepsis Risk: No Definite Risk Problem Qualifiers (1) Acute renal failure: Acute renal failure type: unspecified Qualified Codes: N17.9 - Acute kidney failure, unspecified OLIVERIO VALDERRAMA MD Jan 10, 2018 09:44
[2018-01-10 11:55] VITALS: BP 163/95
[2018-01-10 15:22] VITALS: BP 160/89
[2018-01-10] MEDS: AZITHROMYCIN(*) 500 MG 500 MG in NS(*) 0.9% 250 ML BAG 250 ML IVPB SCH (17:01)
[2018-01-10] MEDS: INSULIN HUM LISPRO 100 UN/ML 3 ML VIAL SUBQ PRN (17:02)
[2018-01-10 19:20] VITALS: BP 150/80
[2018-01-10] MEDS: PATCH REMOVAL 1 EA TP SCH (21:00)
[2018-01-10] MEDS: PRAVASTATIN SOD 20 MG TAB PO SCH (21:10)
[2018-01-11 02:25] VITALS: BP 153/72
[2018-01-11] MEDS: SALMETEROL/FLUTIC 250/50 1 INH INH SCH ×2 (05:13→17:06)
[2018-01-11] MEDS: ALBUTEROL/IPRATROPIUM 3 ML NEB NEB SCH ×3 (05:13→17:06)
[2018-01-11 06:02] LABS: PLATELET COUNT, AUTOMATED 204 K/uL (150-450)
[2018-01-11 07:43] VITALS: BP 167/74
[2018-01-11] MEDS: INSULIN HUM LISPRO 100 UN/ML 3 ML VIAL SUBQ PRN ×3 (07:54→16:34)
[2018-01-11] MEDS: LIDOCAINE 5% PATCH TP SCH (09:31)
[2018-01-11] MEDS: GABAPENTIN 100 MG CAP PO SCH ×3 (09:32→21:09)
[2018-01-11] MEDS: POLYETHYLENE GLYCOL 17 GM PKT PO SCH (09:32)
[2018-01-11] MEDS: METOPROLOL SUCC XL 25 MG TABCR PO SCH ×2 (09:32→21:10)
[2018-01-11] MEDS: guaiFENesin 600 MG TABCR PO SCH ×2 (09:32→21:15)
[2018-01-11] MEDS: RANITIDINE HCL 150 MG TAB PO SCH (09:32)
[2018-01-11] MEDS: buPROPion XL 150 MG TABCR PO SCH ×2 (09:32→21:24)
[2018-01-11] MEDS: DOCUSATE SODIUM 100 MG CAP PO SCH ×2 (09:32→21:09)
[2018-01-11] MEDS: methylPREDNIS SUCC 125 MG/2ML IVP SCH ×2 (09:32→21:16)
[2018-01-11] MEDS: ALLOPURINOL 300 MG TAB PO SCH (09:33)
[2018-01-11] MEDS: ENOXAPARIN 30 MG/0.3 ML SYR SC SCH (09:33)
--- NOTE | 2018-01-11 13:06 | Hospitalist Progress Note ---
Subjective Progress Notes Subjective She reports she is feeling somewhat better, the cough has still progressed. She has wheezing still also. Patient Complains of: Cardiovascular: No: Chest Pain Respiratory: Cough, Shortness of Breath, Wheezing Physical Exam Vital Signs Date Time Temp Pulse Resp B/P (MAP) Pulse Ox O2 Delivery O2 Flow Rate FiO2 01/11/18 11:07 89 18 01/11/18 11:00 95 Nasal Cannula 3.0 01/11/18 07:43 98.9 167/74 (105) Intake and Output 01/11/18 06:59 Intake Total 600 ml Balance 600 ml Intake Oral 600 ml # Voids 3 # Bowel Movements 2 General Appearance: Alert, Awake, No Acute Distress, Afebrile Neuro: No Gross deficits Cardiovascular: Regular Rate and Rhythm Respiratory: No Respiratory Distress, Other (expiratory wheezes noted throughout) GI: Soft and Non-Tender Extremities: No Edema Psych: Alert & Oriented X3, Appropriate Mood & Affect Result Diagram: 01/11/18 0537 01/11/18 0537 Assessment and Plan Problems: (1) COPD exacerbation Status: Acute Assessment & Plan: Minor improvements - less wheezing. She presented with a couple of days of productive cough and worsening SOB. Her O2 requirement is at baseline. She is currently on IV methylprednisolone, Mucinex, Robitussin DM, DuoNeb/prn albuterol, Tessalon Perles, and azithromycin. The patient has mostly upper airway wheezing. She has a history of CT findings suggestive of septations in the trachea, which could be contributing. Repeat chest x-ray was unremarkable. She was placed on Azithromycin to treat possible bronchitis. (2) Acute renal failure Status: Acute Assessment & Plan: Most likely due to dehydration/diuresis. Her creatinine was up to 2.5 (from 1.3 about a month ago). She doesn't appear to be in an acute CHF exacerbation. BNP improving despite hydration. Creatinine improved with gentle IV fluids (now 0.9). Holding Lasix. (3) Low back pain Status: Acute Assessment & Plan: She has had intermittent pain for about a month. She has been falling more. She was generally tender over the sacrum. The X-ray didn't show any obvious fractures. OT/PT seeing patient and recommending short term subacute rehab. Lidoderm and APAP for pain relief. She might need a CT of the pelvis/L-spine if the symptoms persist. The patient is chronically on Gabapentin and was supposed to increase to 200mg TID, but is still on 100mg TID because the daughter was worried about increased falls. Will continue the smaller dose for now. (4) (HFpEF) heart failure with preserved ejection fraction Status: Chronic Assessment & Plan: Chronically on Lasix. Preserved EF on nuclear imaging study in September of 2017. The BNP is elevated from baseline, but could be related to increased right sided pressures/pulmonary HTN. CXR is clear. Echo done on 01/06 is relatively unchanged from previous. See above. (5) Depression Status: Chronic Assessment & Plan: Continue chronic Wellbutrin. (6) Coronary artery disease Status: Chronic Assessment & Plan: Chronically on ASA and Pravastatin. Will hold ASA for now because of the ARF. (7) Abnormal serum protein electrophoresis Status: Chronic (8) CKD (chronic kidney disease) stage 3, GFR 30-59 ml/min Status: Chronic Assessment & Plan: Creatinine has improved with hydration and holding diuretics. Heart Failure Ejection Fraction %: 70 RVSP (mmHg): 60 NYHA Class: III Is Patient on AMY Inhibitor?: No Is Patient on Beta Dc?: No Admission Weight: 195 Exam Sepsis Risk: No Definite Risk Problem Qualifiers (1) Acute renal failure: Acute renal failure type: unspecified Qualified Codes: N17.9 - Acute kidney failure, unspecified MARINA FARMER PRIVACY COMPLIANCE MANAGER Jan 11, 2018 13:06
--- NOTE | 2018-01-11 14:17 | Medical Nutrition Therapy ---
Nutrition Anthropometrics Height (Inches): 60.00 Height (Calculated Centimeters: 152.816191 Weight (Pounds): 178 Weight (Calculated Kilograms): 80.739 BMI: 34.8 Ole[place]r Nutrition Score: Adequate [place]r Nutrition Risk Score: 19 Dietary Referral Nutrition Risk Factors: Nutrition Risk Comment: Physical Findings Physical Appearance: Obese BMI 30-39 Skin Appearance Skin Appearance: Edema Edema Location Modifier: Both Edema Location: Foot Type of Edema: Degree of Edema: Gastrointestinal Symptoms GI Symtoms: Change in Bowel Pattern Tube Present: Bowel Sounds: Recent Bowel Pattern: Stool Characteristics: Nutritional Diagnosis Nutritional Risk Acuity 1: Acute/ES Renal Nutritional Risk Acuity 3: COPD Unstable Past Medical History: Hx of COPD, Depression, CAD, CKD-3, T2DM Nutritional Acuity: 1-High Nutrition Diagnosis: Decreased Nutrient Needs Nutrition Etiology: Physiological Causes Nutrition Problem/Etiology/Sym: Decreased proteinn needs r/t physiological causes AEB ARF- Chloride 108, BUN 31 Energy Requirement: 1430 ([place] adj for obesity * 1.3) Protein Requirement: 65 (.8g/kg) Fluid Requirement: 2000 Diet Type: Diet as Tolerated AGA/REG Nutrition Intervention: Encourage intake, Change diet Nutrition Monitoring & Eval Nutrition Goals: Eat 75-100% Meal, Drink > 1500 cc/day RD Patient Assessment Time: [address] Assessment Type: RD Assessment Patient Nutrition Acuity: 1-High Follow Up Date: Jan 13, 2018 Nutritional Comment: 01/06 Pt admitted for COPD exacerbation. Hx of T2DM, depression, COPD, CAD, CKD-3. Pt Class 2 obesity. Alb 3.3. BNP at 486 down from 513. Elevated BG, pt on AGA, recommend Diabetic diet. Creatinine at 1.9, down from 2.5. No charted intake. TB 01/11 Pt still having coughing and wheezing. Pt having acute rental failure with elevated BUN at 31, Chloride at 108. BNP has elevated to 647. Pt having okay intake, ranges anywhere from 25-100% consumption. Pt alb decreasing and is at 2.9. Pt BG cont to be elevated, recommend diabetic diet to control levels. Will cont to follow. TB PAPA CHAPPELL Jan 11, 2018 12:13
[2018-01-11 14:22] VITALS: BP 161/85
[2018-01-11] MEDS ORDERED: AZITHROMYCIN(*) 500 MG 500 MG in NS(*) 0.9% 250 ML BAG 250 ML IVPB SCH (16:30)
[2018-01-11 19:46] VITALS: BP 162/90
[2018-01-11] MEDS: PATCH REMOVAL 1 EA TP SCH (21:00)
[2018-01-11] MEDS: BENZONATATE 100 MG CAP PO PRN (21:08)
[2018-01-11] MEDS: PRAVASTATIN SOD 20 MG TAB PO SCH (21:09)
[2018-01-12 00:06] VITALS: BP 176/87
[2018-01-12 04:14] VITALS: BP 189/82
[2018-01-12] MEDS: ALBUTEROL/IPRATROPIUM 3 ML NEB NEB SCH ×3 (05:51→17:01)
[2018-01-12] MEDS: SALMETEROL/FLUTIC 250/50 1 INH INH SCH ×2 (05:51→17:01)
[2018-01-12] MEDS: INSULIN HUM LISPRO 100 UN/ML 3 ML VIAL SUBQ PRN ×3 (08:24→21:32)
[2018-01-12 09:07] VITALS: BP 147/74
[2018-01-12] MEDS: POLYETHYLENE GLYCOL 17 GM PKT PO SCH (09:09)
[2018-01-12] MEDS: GABAPENTIN 100 MG CAP PO SCH ×3 (09:09→21:30)
[2018-01-12] MEDS: guaiFENesin 600 MG TABCR PO SCH ×2 (09:09→21:29)
[2018-01-12] MEDS: LIDOCAINE 5% PATCH TP SCH (09:09)
[2018-01-12] MEDS: ALLOPURINOL 300 MG TAB PO SCH (09:09)
[2018-01-12] MEDS: ENOXAPARIN 30 MG/0.3 ML SYR SC SCH (09:09)
[2018-01-12] MEDS: DOCUSATE SODIUM 100 MG CAP PO SCH ×2 (09:10→21:29)
[2018-01-12] MEDS: methylPREDNIS SUCC 125 MG/2ML IVP SCH (09:10)
[2018-01-12] MEDS: RANITIDINE HCL 150 MG TAB PO SCH (09:10)
[2018-01-12] MEDS: METOPROLOL SUCC XL 25 MG TABCR PO SCH ×2 (09:10→21:29)
[2018-01-12] MEDS: buPROPion XL 150 MG TABCR PO SCH ×2 (10:15→21:29)
[2018-01-12] MEDS: BENZONATATE 100 MG CAP PO PRN (10:15)
--- NOTE | 2018-01-12 13:55 | Hospitalist Progress Note ---
Subjective Progress Notes Subjective She has complaints of cough, however, she feels like her breathing and wheezing are getting better. Patient Complains of: Cardiovascular: No: Chest Pain Respiratory: Cough; No: Shortness of Breath Physical Exam Vital Signs Date Time Temp Pulse Resp B/P (MAP) Pulse Ox O2 Delivery O2 Flow Rate FiO2 01/12/18 11:00 97 Nasal Cannula 3.0 01/12/18 11:00 95 18 01/12/18 09:07 98.2 147/74 (98) l Intake and Output 01/12/18 07:00 Intake Total 899 ml Output Total 1 ml Balance 898 ml Intake Oral 640 ml IV Total 259 ml Output Stool Total 1 ml # Voids 6 # Bowel Movements 1 General Appearance: Alert, Awake, No Acute Distress, Afebrile Neuro: No Gross deficits Cardiovascular: Regular Rate and Rhythm Respiratory: No Respiratory Distress, Other (minor expiratory wheeze present to right upper airway) GI: Soft and Non-Tender Psych: Alert & Oriented X3, Appropriate Mood & Affect Result Diagram: 01/11/18 0537 01/11/1837 Assessment and Plan Problems: (1) COPD exacerbation Status: Acute Assessment & Plan: Minor improvements - less wheezing. She presented with a couple of days of productive cough and worsening SOB. Her O2 requirement is at baseline. She is currently on IV methylprednisolone, Mucinex, Robitussin DM, DuoNeb/prn albuterol, Tessalon Perles, and azithromycin. She will be switched to oral prednisone tomorrow, if wheezing still decreased. The patient has mostly upper airway wheezing. She has a history of CT findings suggestive of septations in the trachea, which could be contributing. Repeat chest x-ray was unremarkable. She was placed on Azithromycin to treat possible bronchitis. (2) Acute renal failure Status: Acute Assessment & Plan: Most likely due to dehydration/diuresis. Her creatinine was up to 2.5 (from 1.3 about a month ago). She doesn't appear to be in an acute CHF exacerbation. BNP improving despite hydration. Creatinine improved with gentle IV fluids (now 0.9). Holding Lasix. (3) Low back pain Status: Acute Assessment & Plan: She has had intermittent pain for about a month. She has been falling more. She was generally tender over the sacrum. The X-ray didn't show any obvious fractures. OT/PT seeing patient and recommending short term subacute rehab. Lidoderm and APAP for pain relief. She might need a CT of the pelvis/L-spine if the symptoms persist. The patient is chronically on Gabapentin and was supposed to increase to 200mg TID, but is still on 100mg TID because the daughter was worried about increased falls. Will continue the smal ler dose for now. (4) (HFpEF) heart failure with preserved ejection fraction Status: Chronic Assessment & Plan: Chronically on Lasix. Preserved EF on nuclear imaging study in September of 2017. The BNP is elevated from baseline, but could be related to increased right sided pressures/pulmonary HTN. CXR is clear. Echo done on 01/06 is relatively unchanged from previous. See above. Will resume Lasix at smaller dose. (5) Depression Status: Chronic Assessment & Plan: Continue chronic Wellbutrin. (6) Coronary artery disease Status: Chronic Assessment & Plan: Chronically on ASA and Pravastatin. Will hold ASA for now because of the ARF. (7) Abnormal serum protein electrophoresis Status: Chronic (8) CKD (chronic kidney disease) stage 3, GFR 30-59 ml/min Status: Chronic Assessment & Plan: Creatinine has improved with hydration and holding diuretics. We resume smaller dose of Lasix. Heart Failure Ejection Fraction %: 70 RVSP (mmHg): 60 NYHA Class: III Is Patient on AMY Inhibitor?: No Is Patient on Beta Dc?: No Admission Weight: 195 Exam Sepsis Risk: No Definite Risk Problem Qualifiers (1) Acute renal failure: Acute renal failure type: unspecified Qualified Codes: N17.9 - Acute kidney failure, unspecified MARINA FARMER E[employer]MENT[employer] SCHOOL REGISTRAR Jan 12, 2018 13:55
[2018-01-12 15:16] VITALS: BP 172/85
[2018-01-12 20:26] VITALS: BP 168/95
[2018-01-12] MEDS ORDERED: OXYMETAZOLINE SPRAY 15 ML BTL ENA SCH (21:00)
[2018-01-12] MEDS: PATCH REMOVAL 1 EA TP SCH (21:00)
[2018-01-12] MEDS: PRAVASTATIN SOD 20 MG TAB PO SCH (21:30)
[2018-01-13 03:43] VITALS: BP 146/75
[2018-01-13] MEDS: SALMETEROL/FLUTIC 250/50 1 INH INH SCH (05:55)
[2018-01-13] MEDS: ALBUTEROL/IPRATROPIUM 3 ML NEB NEB SCH ×2 (05:55→13:07)
[2018-01-13 06:07] LABS: PLATELET COUNT, AUTOMATED 182 K/uL (150-450)
[2018-01-13 08:04] VITALS: BP 168/77
[2018-01-13] MEDS: ENOXAPARIN 30 MG/0.3 ML SYR SC SCH (08:52)
[2018-01-13] MEDS: DOCUSATE SODIUM 100 MG CAP PO SCH (08:52)
[2018-01-13] MEDS: RANITIDINE HCL 150 MG TAB PO SCH (08:53)
[2018-01-13] MEDS: ALLOPURINOL 300 MG TAB PO SCH (08:53)
[2018-01-13] MEDS: POLYETHYLENE GLYCOL 17 GM PKT PO SCH (08:53)
[2018-01-13] MEDS: METOPROLOL SUCC XL 25 MG TABCR PO SCH (08:53)
[2018-01-13] MEDS: GABAPENTIN 100 MG CAP PO SCH ×2 (08:53→13:27)
[2018-01-13] MEDS: buPROPion XL 150 MG TABCR PO SCH (08:54)
[2018-01-13] MEDS ORDERED: predniSONE 20 MG TAB PO SCH ×2 (09:00)
[2018-01-13] MEDS ORDERED: ASPIRIN 81 MG ENTERIC COATED PO SCH (09:00)
[2018-01-13] MEDS ORDERED: FUROSEMIDE 20 MG TAB PO SCH (09:00)
[2018-01-13] MEDS: guaiFENesin 600 MG TABCR PO SCH (09:26)
[2018-01-13] MEDS: LIDOCAINE 5% PATCH TP SCH (09:26)
[2018-01-13] MEDS ORDERED: PRED-1 PO (09:40)
[2018-01-13] MEDS ORDERED: GABA-547 PO (09:40)
[2018-01-13] MEDS ORDERED: FURO-45 PO (09:40)
--- NOTE | 2018-01-13 09:50 | Hospitalist Depart ---
Discharge Summary Reason for Hosp/Final Diag: (1) COPD exacerbation Status: Acute Hospital Course & Plan: She did present with increased shortness of breath. Her chest x-ray has been negative for an acute infiltrate. She was treated with IV steroids, nebulizers, and empiric azithromycin. She has now weaned to oral p rednisone and the azithromycin has been stopped. She will complete a prednisone taper as an outpatient. (2) Acute renal failure Status: Acute Hospital Course & Plan: She did have an elevated creatinine at admission. This improved with IV fluids. (3) Low back pain Status: Acute Hospital Course & Plan: She has had intermittent pain for about a month. She has been falling more. She was generally tender over the sacrum. The X-ray didn't show any obvious fractures. She has cleared all therapy goals. Her gabapentin dose has been decreased. (4) (HFpEF) heart failure with preserved ejection fraction Status: Chronic Hospital Course & Plan: An echocardiogram has shown elevated right ventricular pressures at 55mmHg. She is on chronic treatment with Lasix, which has been decreased in dose. (5) Depression Status: Chronic Hospital Course & Plan: She is on chronic treatment with Wellbutrin. (6) Coronary artery disease Status: Chronic Hospital Course & Plan: She is on chronic treatment with aspirin and pravastatin. (7) CKD (chronic kidney disease) stage 3, GFR 30-59 ml/min Status: Chronic (8) Essential hypertension Hospital Course & Plan: She is on chronic treatment with metoprolol and amlodipine. Departure Weight (Pounds): 178 Weight (Ounces): 4.0 Result Diagram: 01/13/1831 01/13/18530 Condition: Improved Discharge: Home, Home Health PT/OT Follow Up For: PT For Strengthening, OT For ADL's Home Health RN Follow Up For: Nursing Assessment Home Health WATER QUALITY CONTROL ENGINEER Follow Up For: ADL Assistance Discharge Instructions Home Meds Active Scripts Prednisone 10 Mg Tab (PREDNISONE 10 MG TAB) 10 Mg Tablet, 10 MG PO DIRECTED, #30 TAB take 4 tab daily x 3 days, then 3 tab daily x 3 days, then 2 tab daily x 3 days, then 1 tab daily x 3 days. Prov:RIDDHI FIGUEROA DO 01/13/18 Gabapentin (GABAPENTIN) 100 Mg Capsule, 100 MG PO TID, #90 CAPSULE Prov:RIDDHI FIGUEROA DO 01/13/18 Furosemide (FUROSEMIDE) 20 Mg Tablet, 20 MG PO QDAY, #30 TAB Prov:RIDDHI FIGUEROA DO 01/13/18 Bupropion Hcl (WELLBUTRIN XL) 150 Mg Tab.er.24h, 1 TAB PO BID, #60 TAB 0 Refills 1 tab daily x 1 week then increase to 1 tab twice daily Prov:ALEXANDER CASTANON APRN-Lissa 11/30/17 [Transport WheelChair] No Conflict Check Prov:ALEXANDER CASTANON APRN 10/16/17 Metoprolol Succinate (METOPROLOL SUCCINATE) 25 Mg Tab.er.24h, 1 TAB PO BID, #180 TAB Prov:ALEXANDER CASTANON APRN 10/14/17 Amlodipine Besylate (AMLODIPINE BESYLATE) 5 Mg Tablet, 1 TAB PO QDAY, #90 TAB 3 Refills Prov:ALEXANDER CASTANON APRN 10/14/17 Allopurinol (Allopurinol) 300 Mg Tablet, 1 TAB PO QDAY, #90 TAB 3 Refills Prov:ALEXANDER CASTANON APRN 10/14/17 Pravastatin Sodium (PRAVASTATIN SODIUM) 40 Mg Tablet, 1 TAB PO QDAY, #90 TAB 3 Refills Prov:ALEXANDER CASTANON APRN 10/14/17 Tramadol Hcl (TRAMADOL HCL) 50 Mg Tablet, 1 TAB PO TID PRN for PAIN, #30 TAB 0 Refills Prov:ALEXANDER CASTANON APRN 09/14/17 Albuterol Sulfate 90 Mcg/Act (PROAIR HFA 90 MCG/ACT) 8.5 Gm Hfa.aer.ad, 2 PUFF I H QID PRN for WHEEZING, #1 INHALER 5 Refills Prov:ALXEANDER CASTANON APRN 08/14/17 [Portable Oxygen] No Conflict Check Prov:ALEXANDER CASTANON APRN 10/30/15 Fluticasone/Salmeterol (ADVAIR 250-50 DISKUS) 1 Each Inh, 1 EACH INH BIDR, #1 DISK Prov:OLIVERIO VALDERRAMA MD 04/12/14 Reported Medications Cyanocobalamin (Vitamin B-12) (B-12) 1,000 Mcg Tablet, 1 TAB PO DAILY 09/14/17 Ranitidine Hcl (ZANTAC) 150 Mg Tablet, 150 MG PO DAILY, TAB 08/14/17 Acetaminophen (TYLENOL EXTRA STRENGTH) 500 Mg Tablet, 2 TAB PO PRN, TAB 03/03/17 Ipratropium/Albuterol Sulfate (IPRAT-ALBUT 0.5-3(2.5) MG/3 ML) 3 Ml Ampul.neb, 3 ML IH Q4-6H PRN for SHORTNESS OF BREATH 05/15/16 Aspirin (ASPIRIN) 81 Mg Tab.chew, 81 MG PO QDAY, TAB.CHEW 05/15/16 Multivitamin (MULTI-VITAMIN DAILY) 1 Each Tablet, 1 EACH PO QDAY 03/08/14 Discontinued Reported Medications Furosemide (LASIX) 40 Mg Tablet, 1 TAB PO QAM, TAB 01/05/18 Gabapentin (GABAPENTIN) 100 Mg Capsule, 200 MG PO TID, CAPSULE 12/29/17 Diet: Regular Activity: As Tolerated Copies to: ALEXANDER CASTANON APRN SCREWHEAD STONER AND POLISHER-C ; Venous Thromboembolism Antithrombotics Is Pt On Any Antithrombotics?: No Heart Failure Ejection Fraction %: 70 RVSP (mmHg): 60 NYHA Class: III Is Patient on AMY Inhibitor?: No Is Patient on Beta Dc?: No Admission Weight: 195 [id number] Certification Face to Face Home Health Certification Institutional Provider conducted the [id number] encounter. Electronic Undersigning Physician Certifies Home Health. I certify that the patient has been under my care and that I had a [id number] encounter that meets the physician [id number] encounter requirements with this patient. This patient is home-bound due to safety issues and continues to require assistance with ADL's. I certify that based on my findings, that Nursing, Aides and the following Home Health services are medically necessary: Medical Necessity: Nursing, Rehab Date Face to Face Conducted: Jan 13, 2018 Problem Qualifiers (1) Acute renal failure: Acute renal failure type: unspecified Qualified Codes: N17.9 - Acute kidney failure, unspecified RIDDHI FIGUEROA DO Jan 13, 2018 09:50
[2018-01-13 11:19] VITALS: BP 168/77
== END 2018-01-13 14:10 | disposition home health service (06) | DRG 191 ==
LOC: ER 17:57 → MED 21:03
PROVIDERS: ADMIT Internal Medicine; ATTEND Internal Medicine
DX: J44.1 Chronic obstructive pulmonary disease with (acute) exacerbation (principal); N17.9 Acute kidney failure, unspecified; I13.0 Hypertensive heart and chronic kidney disease with heart failure and stage 1 through stage 4 chronic kidney disease, or unspecified chronic kidney disease; I50.32 Chronic diastolic (congestive) heart failure; G89.29 Other chronic pain; N18.3 Chronic kidney disease, stage 3 (moderate); F32.9 Major depressive disorder, single episode, unspecified; I25.10 Atherosclerotic heart disease of native coronary artery without angina pectoris; M1A.9XX0 Chronic gout, unspecified, without tophus (tophi); D64.9 Anemia, unspecified; E86.0 Dehydration; Z87.891 Personal history of nicotine dependence; Z91.81 History of falling
CPT/HCPCS: 36415; 36416; 71045; 71046; 72120; 81001; 82040; 82247; 82310; 82374; 82435; 82565; 82947; 82948; 83880; 84075; 84132; 84155; 84295; 84450; 84460; 84484; 84520; 84703; 85025; 93005; 93306; 94640; 96374; 97162; 97166; 99285; A4353; J0456; J1650; J2930; J7030; J7040; J7050; J7512; J7613

== ENCOUNTER 2018-04-02 07:05 | Outpatient (RCR) | payer MEDICARE, OTHER ==
[2018-01-06 10:43] VITALS: BMI 34.8
[~2018-04-02 07:05] MED LIST changes: -AMLO-111 PO; +AMLO-125 PO; +GUAI120L3 PO; +PRED-1 PO
[2018-04-02 15:06] VITALS: BP 140/69
[2018-04-02 15:28] LABS: PLATELET COUNT, AUTOMATED 208 K/uL (150-450)
== END 2018-04-05 15:19 | disposition home or self-care (01) ==
LOC: ONC 07:05
PROVIDERS: ATTEND Internal Medicine Hematology
DX: R77.8 Other specified abnormalities of plasma proteins (principal); I50.9 Heart failure, unspecified; E11.9 Type 2 diabetes mellitus without complications; J44.9 Chronic obstructive pulmonary disease, unspecified; F03.90 Unspecified dementia, unspecified severity, without behavioral disturbance, psychotic disturbance, mood disturbance, and anxiety; I25.2 Old myocardial infarction; E78.5 Hyperlipidemia, unspecified; Z87.891 Personal history of nicotine dependence; Z90.710 Acquired absence of both cervix and uterus
CPT/HCPCS: 36415; 82040; 82232; 82247; 82310; 82374; 82435; 82565; 82947; 83615; 83883; 84075; 84132; 84155; 84295; 84450; 84460; 84520; 84550; 85025; 86334

== ENCOUNTER 2018-04-07 15:54 | Outpatient (RCR) | payer MEDICARE, OTHER ==
[2018-01-06 10:43] VITALS: BMI 34.8
== END 2018-04-08 14:20 | disposition home or self-care (01) ==
LOC: ONC 15:54
PROVIDERS: ATTEND Internal Medicine Hematology
DX: R77.8 Other specified abnormalities of plasma proteins (principal); I50.9 Heart failure, unspecified; E11.9 Type 2 diabetes mellitus without complications; J44.9 Chronic obstructive pulmonary disease, unspecified; F03.90 Unspecified dementia, unspecified severity, without behavioral disturbance, psychotic disturbance, mood disturbance, and anxiety; I25.2 Old myocardial infarction; E78.5 Hyperlipidemia, unspecified; Z87.891 Personal history of nicotine dependence; Z90.710 Acquired absence of both cervix and uterus

== ENCOUNTER 2018-04-23 14:30 | Outpatient (RCR) | payer MEDICARE, OTHER ==
[2018-01-06 10:43] VITALS: BMI 34.8
[2018-04-23 14:39] VITALS: BP 172/76
--- NOTE | 2018-04-24 18:55 | [facility] ONCOLOGY NOTE ---
EVENT DATE: April 23, 2018 DIAGNOSES 1. Abnormal serum protein immunoelectrophoresis. 2. Dementia. 3. Congestive heart failure. 4. Chronic obstructive pulmonary disease. 5. Type 2 diabetes. CHIEF COMPLAINT Patient is here today for followup of her abnormal serum protein immunoelectrophoresis. HEMATOLOGY HISTORY Patient is an 88-year-old female who is followed by Stephany Blakely, and patient was found to have an abnormal serum protein with immunofixation which showed a faint band in IgG lambda. Patient also showed a white count of 6.4, hemoglobin 11.6, hematocrit 33.7, platelets 191,000. Serum creatinine was mildly elevated at 1.4, blood sugar 120. Erythropoietin level was mildly elevated at 33. Quantitative immunoglobulins were normal. IgG was 1060, IgA was 157, and IgM was 40. Patient was referred for evaluation of the abnormal serum protein electrophoresis. Repeat CBC showed normal white count and platelets, mild anemia at 11.2 with MCV 100.1. Chem panel totally normal except AST 38, creatinine 1.3, blood sugar 137, BUN 32. [place] free light chain is high at 7.41, lambda free light chain is high at 2.66, and free kappa to lambda ratio is high at 2.79. Skeletal bone survey is normal with no lytic bone lesions. Serum protein immunoelectrophoresis shows a normal pattern with no monoclonal protein. HISTORY OF PRESENT ILLNESS Patient is here today for followup of her abnormal serum protein electrophoresis. She has epistaxis sometimes. She has cough with expectoration, shortness of breath, and wheezing. She is on home oxygen all the time. She bruises easily. PAST MEDICAL HISTORY 1. Dementia. 2. Congestive heart failure. 3. Hyperlipidemia. 4. Heart attack in 2012. 5. COPD. 6. History of pneumonia. 7. Type 2 diabetes mellitus. PAST SURGICAL HISTORY 1. Appendectomy. 2. Hysterectomy done in 2012. SOCIAL HISTORY The patient is a with one daughter. 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 FAMILY HISTORY Noncontributory. CURRENT MEDICATIONS 1. Prazosin 1 mg at bedtime. 2. Tramadol 50 mg three times daily p.r.n. for pain. 3. Vitamin B12 one tablet daily 1000 mcg. 4. Zantac 150 mg daily. 5. Albuterol 90 mcg per activation, two-puff inhalation four times daily as needed. 6. Duloxetine 30 mg one capsule daily. 7. Metoprolol 25 mg daily. 8. Amlodipine 5 mg daily. 9. Allopurinol 300 mg daily. 10. Gabapentin 100 mg three times daily. 11. Tylenol p.r.n. three times daily, 1000 mg. 12. Lasix 40 mg twice daily. 13. Pravastatin 40 mg daily. 14. Ipratropium/albuterol by nebulization four to six hours p.r.n. 15. Aspirin 81 mg daily. 16. Advair 250/50 twice daily. 17. Multivitamin daily. 18. Portable oxygen. ALLERGIES No known drug allergies. REVIEW OF SYSTEMS CONSTITUTIONAL: No appetite or weight change. No fever, chills, or sweating. No recent infection. HEENT: Ears: No tinnitus or hearing problem. Nose: She has epistaxis occasionally. Throat: No sore throat or mouth ulcers. Eyes: No diplopia or visual changes. RESPIRATORY: She has cough with expectoration, shortness of breath, and wheezing. No hemoptysis. CARDIOVASCULAR: No chest pain, orthopnea, or paroxysmal nocturnal dyspnea (PND). No edema. No palpitations. GASTROINTESTINAL: No nausea or vomiting. No diarrhea or constipation. No change in bowel movements. No heartburn or swallowing difficulties. No abdominal pain. No jaundice. No hematemesis, melena, or rectal bleeding. GENITOURINARY: No hematuria or dysuria. MUSCULOSKELETAL: No pain in the muscles, joints, or bones. NEUROLOGICAL: No tingling or numbness in the hands or feet. No headaches or convulsions. HEMATOLOGIC/LYMPHATIC: No bleeding. She bruises easily. No weakness or fatigue. No enlarged lymph nodes. SKIN: No skin rash or lumps. PSYCHIATRIC: No anxiety or depression. PHYSICAL EXAMINATION GENERAL: Looks stable. Well developed, well nourished, and in no acute distress. VITAL SIGNS: Blood pressure 172/76, pulse 96 per minute, respirations 16 per minute, temperature 97.1, pulse ox 90% on 3L oxygen. HEENT: Head: Atraumatic. No sinus tenderness to palpation. Eyes: No icterus or conjunctivitis. Mouth and throat: No oral thrush or mucositis. NECK: Supple. No cervical or supraclavicular lymphadenopathy. LUNGS: Clear to auscultation and percussion bilaterally. HEART: Regular rate and rhythm. No gallops, murmurs, clicks, or rubs. ABDOMEN: Soft and lax. No tenderness. No hepatosplenomegaly. No masses. EXTREMITIES: No cyanosis, clubbing, or edema. LYMPHATICS: No peripheral lymphadenopathy. NEUROLOGICAL: Conscious, alert, and oriented times three. No focal motor or sensory deficits. PSYCHIATRIC: Mood and affect appear normal. SKIN: No skin rash, bruise, or purpuric eruption. DIAGNOSTIC DATA CBC showed white count 7.1, hemoglobin 11.1, hematocrit 33.5, platelets 208,000. Chem panel totally normal except calcium 10.5, creatinine 1.3, BUN 24. Other parameters are normal. [place] free light chain was 13.7, and lambda free light chain was 3.76. [place] to lambda free light chain ratio was 3.64. All are increased. Serum protein immunoelectrophoresis did not show any monoclonal protein. ASSESSMENT 1. Abnormal serum protein immunoelectrophoresis with faint band in the IgG lambda. Her current serum protein immunoelectrophoresis did not show any monoclonal protein, but there was increase in both kappa free light chain and lambda free light chain and kappa to lambda free light chain ratio. I am planning to continue followup. I will see her again in one year with myeloma profile again. Her skeletal bone survey was negative for bone lesions. 2. Dementia. 3. Congestive heart failure. 4. Chronic obstructive pulmonary disease. 5. Type 2 diabetes. PLAN 1. Continue followup. 2. Patient to return in one year with CBC, chem panel, LDH, uric acid, and myeloma profile. 3. Patient to contact us for any new concern or complaints. [place]
[2018-05-07] MEDS ORDERED: GABA-547 PO (14:00)
[2018-06-07] MEDS ORDERED: BUPR-472 PO (08:27)
== END 2018-06-16 12:52 | disposition home or self-care (01) ==
LOC: ONC 14:30
PROVIDERS: ATTEND Internal Medicine Hematology
DX: R77.8 Other specified abnormalities of plasma proteins (principal); I50.9 Heart failure, unspecified; E11.9 Type 2 diabetes mellitus without complications; J44.9 Chronic obstructive pulmonary disease, unspecified; F03.90 Unspecified dementia, unspecified severity, without behavioral disturbance, psychotic disturbance, mood disturbance, and anxiety; R05 Cough; R06.02 Shortness of breath; R06.2 Wheezing; Z99.81 Dependence on supplemental oxygen; Z87.891 Personal history of nicotine dependence; Z79.899 Other long term (current) drug therapy
CPT/HCPCS: 99212